=== PATIENT | female | born 1970 | race Caucasian/White ===

== ENCOUNTER → 2025-07-18 | Outpatient (CLI) | payer OTHER, SELFPAY ==
--- OUTSIDE RECORDS SUMMARY | 2025-07-18 06:51 | XMS RPT_ITS | CCD ---
Author Organization [facility] Care Team Providers Care Application Architect Manager Name Role Phone Zarrabi, Amberly Unavailable Unavailable No Doctor Assigned, Nodr Unavailable Unavail able Zarrabi, Amberly Unavailable Unavailable Zarrabi, Amberly Unavailable Unavailable No Doctor Assigned, Nodr Unavailable Unavail able Zarrabi, Amberly Unavailable Unavailable No Doctor Assigned, Nodr Unavailable Unavail able Zarrabi, Amberly Unavailable Unavailable No Doctor Assigned, Nodr Unavailable Unavail able Zarrabi, Amberly Unavailable Unavailable Zarrabi, Amberly Unavailable Unavailable Zarrabi, Amberly Unavailable Unavailable Zarrabi, Amberly Unavailable Unavailable Zarrabi, Amberly Unavailable Unavailable Zarrabi, Amberly Unavailable Unavailable Zarrabi, Amberly Unavailable Unavailable Tavallaee, Berhane M Unavailable Unavailable Zarrabi, Amberly Unavailable Unavailable Tavallaee, Berhane M Unavailable Unavailable Amberly Back MD Unavailable Unavailable Zarrabi, Amberly Unavailable Unavailable Amberly Back MD Primary Care Provider Amberly Back MD Unavailable Nayan Escobar MD Unavailable [phone] Amberly Back Referring Unavailable Dr. Amberly Back Attending Unavailable Dr. Amberly Back Primary Care Unavailable Amberly Back MD Unavailable Amberly Back MD Primary Care Provider AMBERLY BACK Primary Care Unavailable GERTRUDE GUERRA Referring Unavailable GERTRUDE GUERRA Admitting Unavailable AMBERLY BACK Primary Care Unavailable GERTRUDE GUERRA Attending Unavailable Amberly Back MD Primary Care Provider Amberly Back MD Unavailable ZARRABI, AMBERLY Primary Care Unavailable BRIAN DOWNING Attending Unavailable ZARRABI, AMBERLY Referring Unavailable ZARRABI, AMBERLY Primary Care Unavailable ZARRABI, AMBERLY Referring Unavailable ZARRABI, AMBERLY Primary Care Unavailable ZARRABI, AMBERLY Primary Care Unavailable PATRICK HIRSCH Attending Unavailable ZARRABI, AMBERLY Attending Unavailable ZARRABI, AMBERLY Primary Care Unavailable ZARRABI, AMBERLY Attending Unavailable ZARRABI, AMBERLY Primary Care Unavailable ZARRABI, AMBERLY Attending Unavailable ZARRABI, AMBERLY Primary Care Unavailable ZARRABI, AMBERLY Attending Unavailable ZARRABI, AMBERLY Primary Care Unavailable ZARRABI, AMBERLY Attending Unavailable ZARRABI, AMBERLY Primary Care Unavailable ZARRABI, AMBERLY Attending Unavailable ZARRABI, AMBERLY Primary Care Unavailable ZARRABI, AMBERLY Attending Unavailable ZARRABI, AMBERLY Primary Care Unavailable Carlos Holcomb Referring Unavailable Carlos Holcomb Attending Unavailable Allergies Allergy Classification Reported Allergen(s) Allergy Type Date of Onset Reaction(s) Facility (8 sources) ADHESIVE TAPE-SILICONES; Translations: [ADHESIVE TAPE-SILICONES] Propensity to adverse reactions to drug (disorder) 4 Rash [facility] (7 sources) gabapentin; Translations: [GABAPENTIN] Drug Allergy 5 Dizziness, Nausea/vomiting [facility] Work Phone: Medications Current Medications Medication Drug Class(es) Dates Sig (Normalized) Sig (Original) [id number] 200 actuat albuterol 0.09 mg/actuat metered dose inhaler (7 sources) beta2-Adrenergic Agonist Start: 08-14-2024 End: 08-14-2025 take 2 puff(s) by inhalation every six hours for wheezing albuterol 90 mcg/actuation inhaler Indications: Acute non-recurrent maxillary sinusitis Inhale 2 puffs every 6 hours if needed for wheezing. 18 g 08/14/2024 08/14/2025 Active Start: 08-14-2024 End: 08-14-2025 take 2 puff(s) by inhalation every six hours as needed albuterol 90 mcg/actuation inhaler Inhale 2 (two) puffs every 6 (six) hours as needed . 08/14/2024 08/14/2025 Active amoxicillin 875 mg / clavulanate 125 mg oral tablet (1 source) Penicillin-class Antibacterial Start: 08-14-2024 End: 08-21-2024 take 1 tablet by mouth twice daily amoxicillin-pot clavulanate (Augmentin) 875-125 mg tablet Indications: Acute non-recurrent maxillary sinusitis Take 1 tablet by mouth 2 times a day for 7 days. 14 tablet 08/14/2024 08/21/2024 Active apple cider vinegar 600 mg oral capsule (16 sources) take 1 capsule by mouth once daily apple cider vinegar 600 mg capsule Take 1 capsule by mouth once daily. Active Apple Cider Vine gar CAPS TAKE 1 CAPSULE Daily Refills: 0 DO Active ascorbic acid 500 mg oral tablet (16 sources) Vitamin C take 1 tablet by karen th once daily ascorbic acid (Vitamin C) 500 mg tablet Take 1 tablet (500 mg) by mouth once daily. Active Vitamin C TABS T UZAIR 1 TABLET DAILY. Refills: 0 DO Active azithromycin 250 mg oral tablet (1 source) Macrolide Antimicrobial Start: 12-04-2024 End: 12-09-2024 azithromycin (Zithromax) 250 mg tablet Indications: Acute non-recurrent maxillary sinusitis Take 2 tablets (500 mg) by mouth once daily for 1 day, THEN 1 tablet (250 mg) once daily for 4 days. Take 2 tabs (500 mg) by mouth today, than 1 daily for 4 days.. 6 tablet 12/04/2024 12/09/2024 Active BEE POLLEN ORAL (15 sources) take 1 tablet by mouth once daily BEE POLLEN ORAL Take 1 tablet by mouth daily . Active take 1 tablet by mouth once moses y BEE POLLEN ORAL Take 1 tablet by mouth once daily. Active take 1 tablet by mouth once moses y BEE POLLEN ORAL Take 1 tablet by mouth once daily. 0 Active betamethasone 0.5 mg/ml / clotrimazole 10 mg/ml topical cream (4 sources) Azole Antifungal, Corticosteroid Start: 05-27-2023 End: 09-24-2023 clotrimazole-betamethasone (Lotrisone) cream Indications: Skin candidiasis , Pruritus Apply 1 Application topically 2 times a day as needed (rash, pruritus). 45 g 3 05/27/2023 09/24/2023 Active busPIRone hydrochloride 5 mg oral tablet (17 sources) Start: 06-08-2024 take 1 tablet by mouth three times daily as needed for anxiety busPIRone (Buspar) 5 mg tablet Indications: Panic attacks TAKE 1 TABLET (5 MG) BY MOUTH 3 TIMES A DAY NEEDED (ANXIETY). 270 tablet 3 06/08/2024 Active Start: 02-17-2024 take 1 tablet by karen th three times daily as needed for anxiety busPIRone (Buspar) 5 mg tablet Indications: Panic attacks TAKE 1 TABLET (5 MG) BY MOUTH 3 TIMES A DAY NEEDED (ANXIETY). 270 tablet 02/17/2024 Active Start: 12-05-2019 End: 05-27-2023 take 1 tablet by mouth three times daily as needed for anxiety busPIRone (Buspar) 5 mg tablet Indications: Panic attacks Take 1 tablet (5 mg) by mouth 3 times a day as needed (anxiety). 90 tablet 3 05/27/2023 Active cephalexin 500 mg oral capsule (2 sources) Cephalosporin Antibacterial Start: 09-13-2024 End: 2024 take 1 capsule by mouth twice daily cephalexin (Keflex) 500 mg capsule Indications: Inflammation of foot joint Take 1 capsule (500 mg) by mouth 2 times a day for 7 days. 14 capsule 09/13/2024 2024 Active Start: 05-27-2023 End: 06-03-2023 take 1 capsule by mouth twice daily cephalexin (Keflex) 500 mg capsule Indications: Skin inflammation Take 1 capsule (500 mg) by mouth 2 times a day for 7 days. 14 capsule 0 05/27/2023 06/03/2023 Active cyclobenzaprine hydrochloride 10 mg oral tablet (16 sources) Muscle Relaxant Start: 09-13-2024 End: 09-27-2024 cyclobenzaprine (Flexeril) 10 mg tablet Indications: Tendinitis of foot Take 1 tablet (10 mg) by mouth as needed at bedtime for muscle spasms for up to 14 days. 14 tablet 09/13/2024 Active Start: 12-12-2020 End: 09-13-2024 take 1 tablet by mouth every twenty-four hours as needed cyclobenzaprine (Flexeril) 10 mg tablet Take 1 tablet (10 mg) by mouth once daily as needed for muscle spasms. 12/12/2020 09/13/2024 Discontinued (Med List Cleanup) DULoxetine 20 mg delayed release oral capsule (20 sources) Serotonin and Norepinephrine Reuptake Inhibitor Start: 05-09-2024 End: 05-25-2024 take 1 capsule by mouth twice daily DULoxetine (Cymbalta) [address] capsule Indications: Depression, major, in remission (CMS-HCC) , Anxiety Take 1 capsule (20 mg) by mouth 2 times a day. 180 capsule 3 05/25/2024 Active Start: 04-10-2024 End: 05-09-2024 take 1 capsule by mouth once daily DULoxetine (Cymbalta) [address] capsule Indications: Depression with anxiety Take 1 capsule (20 mg) by mouth once daily. 90 capsule 04/10/2024 05/09/2024 Discontinued (Reorder) Start: 12-12-2020 End: 05-27-2023 take 1 capsule by mouth once daily DULoxetine (Cymbalta) [address] capsule Indications: Depression with anxiety Take 1 capsule (20 mg) by mouth once daily. 90 capsule 3 05/27/2023 Active ECHINACEA ORAL (15 sources) take 1 tablet by karen th once daily ECHINACEA ORAL Take 1 tablet by mouth daily . Active take 1 tablet by mouth once moses y ECHINACEA ORAL Take 1 tablet by mouth once daily. Active take 1 tablet by mouth once moses y ECHINACEA ORAL Take 1 tablet by mouth once daily. 0 Active fenofibrate 54 mg oral tablet (1 source) Peroxisome Proliferator Receptor alpha Agonist Start: 05-25-2024 take 1 tablet by mouth once daily fenofibrate (Tricor) 54 mg tablet Indications: Hypertriglyceridemia Take 1 tablet (54 mg) by mouth once daily. 90 tablet 3 05/25/2024 Active Start: 05-25-2024 take 1 tablet by karen th once daily fenofibrate (Tricor) 54 mg tablet Indications: Hypertriglyceridemia Take 1 tablet (54 mg) by mouth once daily. 90 tablet 3 05/25/2024 Active fluconazole 150 mg oral tablet (1 source) Azole Antifungal Start: 05-27-2023 End: 05-30-2023 take 1 tablet by mouth once daily fluconazole (Diflucan) 150 mg tablet Indications: Skin candidiasis , Pruritus Take 1 tablet (150 mg) by mouth once daily for 3 days. 3 tablet 0 05/27/2023 05/30/2023 Active furosemide 20 mg oral tablet (3 sources) Loop Diuretic Start: 11-20-2024 End: 11-20-2025 take 1 tablet by mouth once daily as needed for edema furosemide (Lasix) 20 mg tablet Indications: Right foot pain , Edema of right foot Take 1 tablet (20 mg) by mouth once daily as needed (edema). 30 tablet 11/20/2024 11/20/2025 Active hydroCHLOROthiazide 12.5 mg / lisinopril 20 mg oral tablet (17 sources) Thiazide Diuretic, Angiotensin Converting Enzyme Inhibitor Start: 07-10-2024 take 1 tablet by mouth twice daily lisinopriL-hydroc hlorothiazide 20-12.5 mg tablet Indications: Hypertension associated with diabetes TAKE 1 TABLET BY MOUTH TWICE A DAY 180 tablet 3 07/10/2024 Active Start: 04-10-2024 take 1 tablet by karen twice daily lisinopriL-hydrochlorothiazide 20-12.5 m g tablet Indications: Hypertension associated with diabetes (Multi) Take 1 tablet by mouth 2 times a day. 180 tablet 04/10/2024 Active Start: 05-27-2023 End: 05-27-2023 take 1 tablet by mouth twice daily lisinopriL-hydrochlorothiazide 20-12.5 m g tablet Indications: Hypertension associated with diabetes (CMS/HCC) Take 1 tablet by mouth 2 times a day. 90 tablet 3 05/27/2023 Active hydrOXYzine hydrochloride 25 mg oral tablet (15 sources) Antihistamine Start: 05-27-2023 End: 10-13-2024 take 1 tablet by mouth three times daily as needed hydrOXYzine HCL (Atarax) 25 mg tablet Indications: Panic attacks , Pruritus Take 1 tablet (25 mg) by mouth 3 times a day as needed for itching. 40 tablet 1 09/13/2024 Active metFORMIN hydrochloride 500 mg oral tablet (18 sources) Biguanide Start: 11-20-2024 End: 11-20-2025 take 1 tablet by mouth once daily at breakfast metFORMIN (Glucophage) 500 mg tablet Indications: Type 2 diabetes mellitus with hyperglycemia, without long-term current use of insulin Take 1 tablet (500 mg) by mouth once daily with breakfast. 90 tablet 3 11/20/2024 11/20/2025 Active Start: 05-25-2024 End: 09-18-2025 take 1 tablet by mouth twice daily metFORMIN (Glucophage) 500 mg tablet Indications: Type 2 diabetes mellitus with hyperglycemia, without long-term current use of insulin Take 1 tablet (500 mg) by mouth 2 times daily (morning and late afternoon). 180 tablet 3 09/18/2024 11/20/2024 Discontinued (Reorder) Start: 06-17-2023 End: 06-16-2024 take 1 tablet by mouth once daily at mealtime metFORMIN (Glucophage) 500 mg tablet Indications: Type 2 diabetes mellitus with hyperglycemia, without long-term current use of insulin (Multi) TAKE 1 TABLET (500 MG) BY MOUTH ONCE DAILY WITH A MEAL. 90 tablet 3 05/22/2024 05/25/2024 Discontinued (Reorder) Start: 12-12-2020 End: 05-27-2023 take 1 tablet by mouth once daily metFORMIN (Glucophage) 500 mg tablet Take 1 tablet (500 mg) by mouth once daily. 0 12/12/2020 05/27/2023 Discontinued (Non-compliance) 24 hr metoprolol succinate 25 mg extended release oral tablet (11 sources) beta-Adrenergic Maycol Start: 05-09-2024 End: 08-21-2025 take 1 tablet by mouth once daily metoprolol succinate XL (Toprol-XL) 25 mg 24 hr tablet Indications: Hypertension associated with diabetes Take 1 tablet (25 mg) by mouth once daily. Do not crush or chew. 90 tablet 3 08/21/2024 08/21/2025 Active omeprazole 40 mg delayed release oral capsule (3 sources) Proton Pump Inhibitor Start: 11-20-2024 take 1 capsule by mouth once daily before mealtime omeprazole (PriLOSEC) [address] capsule Indications: Gastroesophageal reflux disease without esophagitis Take 1 capsule (40 mg) by mouth once daily in the morning. Take before meals. Do not crush or chew. 90 capsule 3 11/20/2024 Active ondansetron 4 mg disintegrating oral tablet (4 sources) Serotonin-3 Receptor Antagonist Start: 12-04-2024 take 1 tablet by mouth three times daily as needed for nausea ondansetron ODT (Zofran-ODT) 4 mg disintegrating tablet Indications: Nausea Dissolve 1 tablet (4 mg) in the mouth 3 times a day as needed for nausea or vomiting. 30 tablet 1 12/04/2024 Active Start: 12-02-2024 End: 12-04-2024 take 1 tablet by mouth every eight hours as needed for nausea and nausea ondansetron ODT (Zofran-ODT) 4 mg disintegrating tablet Indications: Nausea Dissolve 1 tablet (4 mg) in the mouth every 8 hours if needed for nausea or vomiting. 12 tablet 12/02/2024 12/04/2024 Discontinued (Reorder) Start: 11-20-2024 End: 11-27-2024 take 1 tablet by mouth every eight hours as needed for nausea and nausea ondansetron (Zofran) 4 mg tablet Indications: Nausea Take 1 tablet (4 mg) by mouth every 8 hours if needed for nausea or vomiting for up to 7 days. 20 tablet 11/20/2024 11/27/2024 Active predniSONE 2.5 mg oral tablet (4 sources) Start: 12-04-2024 End: 12-11-2024 take 1 tablet by mouth once daily predniSONE (Deltasone) 2.5 mg tablet Indications: Acute non-recurrent maxillary sinusitis Take 1 tablet (2.5 mg) by mouth once daily for 7 days. 7 tablet 12/04/2024 12/11/2024 Active Start: 11-20-2024 End: 11-25-2024 take 3 tablets by mouth once daily predniSONE (Deltasone) 10 mg tablet Indications: Right foot pain , Edema of right foot Take 3 tablets (30 mg) by mouth once daily for 5 days. 15 tablet 11/20/2024 11/25/2024 Active Start: 09-13-2024 End: 09-18-2024 take 3 tablets by mouth once daily predniSONE (Deltasone) 10 mg tablet Indications: Inflammation of foot joint , Tendinitis of foot Take 3 tablets (30 mg) by mouth once daily for 5 days. 15 tablet 09/13/2024 09/18/2024 Active Start: 06-17-2023 End: 06-22-2023 take 1 tablet by mouth once daily predniSONE (Deltasone) 5 mg tablet Indications: Acute pain of left knee Take 1 tablet (5 mg) by mouth once daily for 5 days. 5 tablet 0 06/17/2023 06/22/2023 Active simvastatin 5 mg oral tablet (10 sources) HMG-CoA Reductase Inhibitor Start: 05-25-2024 End: 08-21-2025 take 1 tablet by mouth once daily at bedtime simvastatin (Zocor) 5 mg tablet Indications: Hypercholesterolemia Take 1 tablet (5 mg) by mouth once daily at bedtime. 90 tablet 3 08/21/2024 08/21/2025 Active Turmeric extract (15 sources) Start: 06-27-2020 TURMERIC ORAL Take by mouth daily . 06/27/2020 Active Start: 06-27-2020 TURMERIC ORAL Take by mouth early in the morning.. 06/27/2020 Active Start: 06-27-2020 TURMERIC ORAL Take by mouth early in the morning.. 0 06/27/2020 Active Completed/Discontinued Medications Medication Drug Class(es) Dates Sig (Normalized) Sig (Original) Bee Pollen TABS (1 source) Bee Pollen TABS Take 1 tablet daily Refills: 0 DO Active ciprofloxacin 3 mg/ml ophthalmic solution (3 sources) Quinolone Antimicrobial Start: 06-17-2023 End: 07-01-2023 take 1 drop(s) into the eye(s) four times daily ciprofloxacin (Ciloxan) 0.3 % ophthalmic solution Indications: Acute conjunctivitis of both eyes, unspecified acute conjunctivitis type Administer 1 drop into both eyes 4 times a day for 7 days. 1.5 mL 0 06/17/2023 07/01/2023 Discontinued (Therapy completed) Echinacea TABS (1 source) Echinacea TABS T uzair 1 tablet daily Refills: 0 DO Active gemfibrozil 600 mg oral tablet (6 sources) Peroxisome Proliferator Receptor alpha Agonist Start: 05-25-2024 End: 09-13-2024 take 1 tablet by mouth twice daily gemfibrozil (Lopid) 600 mg tablet Take 1 tablet (600 mg) by mouth 2 times a day. 180 tablet 3 09/13/2024 09/13/2024 Discontinued (Drug interaction) Linseed Oil (1 source) Flax Seed Oil CA PS TAKE 1 CAPSULE Daily Refills: 0 DO Active Turmeric Curcumin Oral Capsule (1 source) Start: 06-27-2020 Turmeric Curcumin Oral Capsule Refills: 0 DO Start : 27-Jun-2020 Active Problems Active Problems Problem Classification Problem Date Documented Date Episodic/Chronic Adjustment disorders (3 sources) Grief finding; Translations: [Adjustment disorder with depressed mood] Onset: 05-09-2024 05-09-2024 Chronic Anxiety disorders (20 sources) Panic attack; Translations: [Panic disorder without agoraphobia] Onset: 05-27-2023 Resolved: 07-01-2023 05-27-2023 Chronic Conditions associated with dizziness or vertigo (3 sources) Vertigo; Translations: [Dizziness and giddiness] Onset: 12-02-2024 12-02-2024 Episodic Diabetes mellitus with complications (20 sources) Hypertensive disorder; Translations: [Diabetes with other specified manifestations, type II or unspecified type, not stated as uncontrolled] Onset: 05-27-2023 05-27-2023 Chronic Disorders of lipid metabolism (20 sources) Hypertriglyceridemia; Translations: [Pure hyperglyceridemia] Onset: 06-17-2023 06-17-2023 Chronic Esophageal disorders (3 sources) Gastroesophageal reflux disease without esophagitis; Translations: [Gastro-esophageal reflux disease without esophagitis] Onset: 11-20-2024 11-20-2024 Chronic Hypertension with complications and secondary hypertension (2 sources) Hypertension secondary to endocrine disorders; Translations: [Hypertension secondary to endocrine disorders] Onset: 05-27-2023 Chronic Malaise and fatigue (8 sources) Fatigue; Translations: [Chronic fatigue, unspecified] Onset: 07-20-2024 07-20-2024 Chronic Miscellaneous mental health disorders (15 sources) Primary insomnia; Translations: [Persistent disorder of initiating or maintaining sleep] Onset: 05-27-2023 05-27-2023 Chronic Mood disorders (20 sources) Major depression in remission; Translations: [Major depressive disorder, single episode, in full remission] Onset: 05-27-2023 05-27-2023 Chronic Nausea and vomiting (7 sources) Nausea; Translations: [Nausea] Onset: 11-20-2024 11-20-2024 Episodic Osteoarthritis (3 sources) Foot joint inflamed; Translations: [Primary osteoarthritis, unspecified ankle and foot] Onset: 09-13-2024 09-13-2024 Chronic Other connective tissue disease (4 sources) Pain in right foot; Translations: [Pain in right foot] Onset: 08-28-2024 Episodic Other connective tissue disease (2 sources) Foot pain Onset: 08-28-2024 Episodic Other connective tissue disease (1 source) Tendinitis of foot; Translations: [Other enthesopathy of unspecified foot and ankle] 09-13-2024 Episodic Other connective tissue disease (4 sources) Pain in right foot; Translations: [Pain in right foot] 09-28-2024 Episodic Other connective tissue disease (2 sources) Other enthesopathy of unspecified foot and ankle; Translations: [Other enthesopathy of unspecified foot and ankle] Onset: 09-13-2024 Episodic Other connective tissue disease (1 source) Pain in right lower leg; Translations: [Pain in right lower leg] Onset: 06-01-2025 Episodic Other inflammatory condition of skin (18 sources) Pruritus, unspecified; Translations: [Unspecified pruritic disorder] Onset: 05-27-2023 Resolved: 05-09-2024 05-27-2023 Episodic Other injuries and conditions due to external causes (2 sources) History of fall; Translations: [History of falling] 06-17-2023 Episodic Other nervous system disorders (1 source) Other hereditary and idiopathic neuropathies; Translations: [Other hereditary and idiopathic neuropathies] Onset: 06-01-2025 Chronic Other non-traumatic joint disorders (1 source) Knee pain; Translations: [Pain in joint, lower leg] Episodic Other nutritional; endocrine; and metabolic disorders (11 sources) Obesity caused by energy imbalance; Translations: [Class 1 obesity due to excess calories with serious comorbidity and body mass index (BMI) of 31.0 to 31.9 in adult] Onset: 05-09-2024 05-09-2024 Chronic Other nutritional; endocrine; and metabolic disorders (4 sources) Other obesity due to excess calories; Translations: [Other obesity due to excess calories] Onset: 05-09-2024 Chronic Other nutritional; endocrine; and metabolic disorders (4 sources) Body mass index (BMI) 31.0-31.9, adult; Translations: [Body mass index (BMI) 31.0-31.9, adult] Onset: 05-09-2024 Chronic Other upper respiratory infections (6 sources) Acute maxillary sinusitis; Translations: [Acute maxillary sinusitis, unspecified] Onset: 08-14-2024 08-14-2024 Episodic Residual codes; unclassified (8 sources) Obstructive sleep apnea syndrome; Translations: [Obstructive sleep apnea (adult) (pediatric)] Onset: 07-20-2024 07-20-2024 Chronic Residual codes; unclassified (1 source) Past history of procedure; Translations: [Other specified personal history presenting hazards to health] Episodic Residual codes; unclassified (1 source) Influenza vaccination declined; Translations: [Vaccination not carried out because of patient refusal] Episodic Residual codes; unclassified (1 source) Edema of foot; Translations: [Localized edema] 11-20-2024 Episodic Residual codes; unclassified (2 sources) Localized edema; Translations: [Localized edema] Onset: 11-20-2024 Episodic Spondylosis; intervertebral disc disorders; other back problems (15 sources) Degeneration of thoracic intervertebral disc; Translations: [Degeneration of thoracic or thoracolumbar intervertebral disc] Onset: 05-27-2023 05-27-2023 Chronic Spondylosis; intervertebral disc disorders; other back problems (16 sources) Chronic low back pain; Translations: [Lumbago] Onset: 05-27-2023 05-27-2023 Episodic Unclassified (1 source) Obesity, class 1; Translations: [Obesity, class 1] Onset: 05-09-2024 Viral infection (3 sources) Acute viral disease; Translations: [Viral infection, unspecified] Onset: 12-02-2024 12-02-2024 Episodic Past or Other Problems Problem Classification Problem Date Documented Date Episodic/Chronic Inflammation; infection of eye (except that caused by tuberculosis or sexually transmitteddisease) (14 sources) Acute conjunctivitis of bilateral eyes; Translations: [Unspecified acute conjunctivitis, bilateral] Onset: 06-17-2023 Resolved: 07-01-2023 06-17-2023 Episodic Malaise and fatigue (5 sources) Fatigue; Translations: [Other fatigue] Onset: 05-09-2024 05-09-2024 Episodic Mycoses (15 sources) Candidiasis of skin; Translations: [Candidiasis of skin and nail] Onset: 05-27-2023 Resolved: 05-09-2024 05-27-2023 Episodic Other connective tissue disease (14 sources) Muscle weakness of limb; Translations: [Muscle weakness (generalized)] Onset: 05-27-2023 05-27-2023 Episodic Other lower respiratory disease (11 sources) Apnea; Translations: [Apnea, not elsewhere classified] Onset: 05-09-2024 05-09-2024 Episodic Other lower respiratory disease (1 source) Snoring; Translations: [Snoring] 05-09-2024 Episodic Other lower respiratory disease (4 sources) Apnea, not elsewhere classified; Translations: [Apnea, not elsewhere classified] Onset: 05-09-2024 Episodic Other nervous system disorders (15 sources) Numbness; Translations: [Anesthesia of skin] Onset: 05-27-2023 05-27-2023 Episodic Other non-traumatic joint disorders (17 sources) Pain in left knee; Translations: [Pain in joint, lower leg] Onset: 05-27-2023 05-27-2023 Episodic Other screening for suspected conditions (not mental disorders or infectious disease) (20 sources) Liver function tests abnormal; Translations: [Other abnormal blood chemistry] Onset: 05-27-2023 05-27-2023 Episodic Residual codes; unclassified (15 sources) Edema of lower extremity; Translations: [Edema] Onset: 05-27-2023 05-27-2023 Episodic Skin and subcutaneous tissue infections (15 sources) Inflammatory dermatosis; Translations: [Local infection of the skin and subcutaneous tissue, unspecified] Onset: 05-27-2023 Resolved: 05-09-2024 05-27-2023 Episodic Unclassified (14 sources) Onset: 05-27-2023 Resolved: 12-04-2024 05-27-2023 Unclassified (1 source) Obesity, class 1; Translations: [Obesity, class 1] Onset: 07-10-2024 NEGATED: Highlighted row has not occurred!Residual codes; unclassified (5 sources) Disease Episodic Results Test Name Value Interpretation Reference Range Facility POCT SARS-COV-2/FLU/RSV PCR SYMPTOMATIC manually resultedOrdered By: Bri Yoder on 12-02-2024 FLUAV RNA ROMY+probe Ql (Resp) Not detected Not Detected [facility] FLUBV RNA ROMY+probe Ql (Resp) Not detected Not Detected [facility] Interpretation and review of laboratory results Normal [facility] RSV RNA ROMY+probe Ql (Resp) Not detected Not Detected [facility] SARS-CoV-2 (COVID-19) RNA ROMY+probe Ql (Resp) Not detected Not Detected [facility] XR FOOT RIGHT 3+ VIEWS (DANIELLE RADHA)on 08-28-2024 XR FOOT RIGHT 3+ VIEWS (STANDARD) No acute fractures or dislocations noted. Joint spaces are within normal limits. Large plantar calcaneal enthesophyte noted. Dictated by: GERTRUDE GUERRA on WedAug 29, 2024 11:57:36 AM EST Transcribed by: GERTRUDE GUERRA on WedAug 29, 2024 11:57:36 AM EST Finalized by: GERTRUDE GUERRA on WedAug 29, 2024 11:57:36 AM EST Normal [facility] Ambulatory Comment on above: Order Comment: Injur y/Trauma or Illness?:Illness/Other How long have you had these symptoms (acute/chronic)?:Chronic Reason for exam?:pain History of cancer?:u Surgeries, chemotherapy, or radiation?:u Type of Exam?:Initial Additional signs and symptoms?:no BI MAMMO BILATERAL SCREENING TOMOSYNTHESISon 05-25-2024 BI MAMMO BILATERAL SCREENING TOMOSYNTHESIS Interpreted By: Ann Brown, STUDY: BI MAMMO BILATERAL SCREENING TOMOSYNTHESIS; 05/25/2024 11:53 am ACCESSION NUMBER(S): [id number] ORDERING CLINICIAN: AMBERLY BACK INDICATION: Screening. COMPARISON: Digital mammograms dated 06/01/2023 FINDINGS: CC and MLO 2D digital mammograms and digital breast tomosynthesis images were obtained of the bilateral breasts. 3-D volume images were reconstructed in 5 views at an independent workstation as 1 mm slices through the breasts in both the CC and MLO projections. Density: There are scattered areas of fibroglandular density. No discrete mass or focal asymmetry is identified. No suspicious microcalcifications or foci of architectural distortion are seen. There has been no significant change. This study was interpreted with CAD. IMPRESSION: No mammographic evidence of malignancy. Based on the Tyrer-Cuzick model for breast cancer risk assessment, the patient's lifetime risk of breast cancer is 27.8%. Patients with over a 20% lifetime risk of developing breast cancer may benefit from additional screening with breast MRI or ultrasound. Please note that this estimate is based on responses provided on the patient questionnaire. For more information regarding high risk consultation, please call [phone]. BI-RADS CATEGORY: BI-RADS Category: 1 Negative. Recommendation: Routine Screening Mammogram in 1 Year. Recommended Date: 1 Year. Laterality: Bilateral. MACRO: None Signed by: Ann Brown 05/26/2024 9:23 AM Dictation workstation: [id number] [facility] XR Knee - left 3 Viewson 1. Unremarkable left knee radiographs. MACRO: None. Signed by: Lyn Houser 06/19/2023 8:24 AM Dictation workstation: [id number] MMODAL Interpreted By: Lyn Houser, STUDY: Left knee, 3 views. INDICATION: Signs/Symptoms:pain , s/p fall. COMPARISON: 12/23/2020. ACCESSION NUMBER(S): [id number] ORDERING CLINICIAN: AMBERLY BACK FINDINGS: No acute fracture or malalignment. Sclerotic foci again noted in the superior patella likely representing bone islands, stable when compared with prior. Joint spaces are well maintained. No significant knee joint effusion. Soft tissues are unremarkable. MMODAL Lyn Houser MD - 06/19/2023 Interpreted By: Lyn Houser, STUDY: Left knee, 3 views. INDICATION: Signs/Symptoms:pain , s/p fall. COMPARISON: 12/23/2020. ACCESSION NUMBER(S): [id number] ORDERING CLINICIAN: AMBERLY BACK FINDINGS: No acute fracture or malalignment. Sclerotic foci again noted in the superior patella likely representing bone islands, stable when compared with prior. Joint spaces are well maintained. No significant knee joint effusion. Soft tissues are unremarkable. IMPRESSION: 1. Unremarkable left knee radiographs. MACRO: None. Signed by: Lyn Houser 06/19/2023 8:24 AM Dictation workstation: [id number] [facility] Work Phone: XR Knee - left 3 ViewsOrdere d By: Lyn Houser on 06-19-2023 [facility] Work Phone: XR Knee - left 3 Viewson Radiology Study observation (narrative) [facility] Work Phone: DIGITAL MAMM SCREENING W/ TO [place] 06-01-2023 DIGITAL MAMM SCREENING W/ JOSE ROBERTO Patient Name: LUCY LORENZ STUDY: DIGITAL MAMM SCREENING W/ JOSE ROBERTO; 06/01/2023 10:54 am ACCESSION NUMBER(S): [id number] ORDERING CLINICIAN: AMBERLY BACK INDICATION: Screening. COMPARISON: Digital mammograms dated 12/23/2020 FINDINGS: CC and MLO 2D digital mammograms and digital breast tomosynthesis images were obtained of the bilateral breasts. 3-D volume images were reconstructed in 4 views at an independent workstation as 1 mm slices through the breasts in both the CC and MLO projections. There are areas of scattered fibroglandular tissue. No discrete mass or focal asymmetry is identified. No suspicious microcalcifications or foci of architectural distortion are seen. There has been no significant change. This study was interpreted with CAD. IMPRESSION: No mammographic evidence of malignancy. BI-RADS CATEGORY: BI-RADS Category: 1 Negative. Recommendation: Routine Screening Mammogram in 1 Year. Recommended Date: 1 Year. Laterality: Bilateral. MACRO: None Electronically signed by: ANN BROWN MD [facility] Office Visit (Internal Medic ine)on 01-02-2021 Follow-up visit Diagnoses/Problems Assessed Muscle weakness of lower extremity (728.87) (M62.81) Chronic low back pain (724.2,338.29) (M54.5,G89.29) Knee pain, left (719.46) (M25.562) Type 2 diabetes mellitus with hyperglycemia (250.00) (E11.65) Abnormal LFTs (790.6) (R94.5) Hypertension associated with diabetes (250.80,401.9) (E11.59,I15.2) Orders Abnormal LFTs, Hypertension associated with diabetes, Type 2 diabetes mellitus with hyperglycemia Comprehensive Metabolic Panel; Status:Active - Retrospective Authorization; Requested for:[id number]; Perform:Lab Services - Lab To Draw (Blood Test); Due:[id number]; Last Updated By:Jesse Guillen; 01/02/2021 1:18:21 PM;Ordered; For:Abnormal LFTs, Hypertension associated with diabetes, Type 2 diabetes mellitus with hyperglycemia; Ordered By:Amberly Back; Chronic low back pain, Knee pain, left, Muscle weakness of lower extremity Physical Therapy - General Referral Evaluation and Treatment Evaluate AND Treat Status: Temporary Deferral - Pt requests deferral,pt to check with ins and will contact office back Ordered;For: Chronic low back pain, Knee pain, left, Muscle weakness of lower extremity; Ordered By: Amberly Back Performed: Order Comments: PT HAS PUT THIS ON HOLD SO THAT SHE CAN CHECK WITH HER INS Due: [id number]; Last Updated By: Brian Avila; 01/02/2021 1:16:47 PM Knee pain, left Renew: Cyclobenzaprine HCl - 10 MG Oral Tablet; TAKE 1 TABLET Daily prn Rx By: Amberly Back; Dispense: 7 Days ; #:7 Tablet; Refill: 0;For: Knee pain, left; BEREKET = N; Sent To: [facility] #[id number] Type 2 diabetes mellitus with hyperglycemia Hemoglobin A1C; Status:Active - Retrospective Authorization; Requested for:[id number]; Perform:Lab Services - Lab To Draw (Blood Test); Due:[id number]; Last Updated By:Jesse Guillen; 01/02/2021 1:18:21 PM;Ordered; For:Type 2 diabetes mellitus with hyperglycemia; Ordered By:Amberly Back; Patient Discussion/Summary 3 MON CMP, HGBA1C Provider Impressions TEST RESULTS WERE DISCUSSED. ADVISED TO APPLY WARM COMPRESSION AND TO USE OTC PAIN CREAM PRN. ADVISED FOR L LEG ELEVATION PRN. ADVISED TO FOLLOW THE LOW FAT, LOW CALORIE DIET AND TO EAT SMALLER PORTIONS MORE FREQUENT SERVINGS. ADVISED FOR WEIGHT LOSS. ADVISED FOR REGULAR DAILY EXERCISE . Chief Complaint 2 WEEK FOLLOW UP + LEFT KNEE XRAY + MAMMOGRAM. PT STATE PAIN IN THE LEFT KNEE COMES AND GOES. History of Present IllnessMAMMO AND XR F/U. STILL HAS THE L KNEE PAIN ON AND OFF 4-02/13 ON AND OFF .NO H/O FALL OR TRAUMA. Review of Systems Constitutional: not feeling poorly, no fever, no recent weight gain and no recent weight loss. Eyes: no blurred vision and no diplopia. ENT: no hearing loss, no tinnitus, no earache, no sore throat, no hoarseness and no swollen glands in the neck. Cardiovascular: no chest pain, no tightness or heavy pressure, no shortness of breath, no palpitations and no lower extremity edema. Respiratory: no cough, not coughing up sputum and no wheezing that is consistent with asthma. Gastrointestinal: no change in bowel habits, no diarrhea, no constipation, no bloody stools, no nausea, no vomiting, no abdominal pain, no signs and symptoms of ulcer disease, no marli colored stools and no intolerance to fatty foods. Genitourinary: no urinary frequency, no dysuria, no burning sensation during urination and no hematuria. Musculoskeletal: no arthralgias, no joint stiffness, no muscle weakness, no back pain, no difficulty walking and as noted in HPI. Skin: no rashes, no change in skin color and pigmentation, no skin lesions and no skin lumps. Neurological: no headaches, no dizziness, no seizures, no tingling, no numbness, no signs and symptoms of stroke and no limb weakness. Psychiatric: no confusion, no memory lapses or loss, no depression and no sleep disturbances. Endocrine: no goiter, no thyroid disorder, no diabetes mellitus, no excessive thirst, no dry skin, no cold intolerance, no heat intolerance and no increased urinary frequency. Hematologic/Lymphatic: is not slow to heal, does not bleed easily, does not bruise easily, no thrombophlebitis, no anemia and no history of blood transfusion. All other systems have been reviewed and are negative for complaint. Active Problems Problems Abnormal LFTs (790.6) (R94.5) Chronic low back pain (724.2,338.29) (M54.5,G89.29) Degeneration of intervertebral disc of thoracic region (722.51) (M51.34) Depression with anxiety (300.4) (F41.8) Hypertension associated with diabetes (250.80,401.9) (E11.59,I15.2) Knee pain, left (719.46) (M25.562) Leg edema (782.3) (R60.0) Panic attacks (300.01) (F41.0) Primary insomnia (307.42) (F51.01) Type 2 diabetes mellitus with hyperglycemia (250.00) (E11.65) Past Medical History Problems History of Encounter for cervical Pap smear with pelvic exam (V76.2,V72.31) (Z01.419) NORMAL PER PT FAMILY PLANNING H/O mammogram (V15.89) (Z92.89) CAT 2 H/O mammogram (V15.89) (Z92.89) Category: (more content not included)... Normal [facility] - Screening Mammogram w / Tomosynthesison 12-23-2020 MG Breast Screening Interpreted by: ANN BROWN 12/23/20 11:32 Patient Name: LUCY LORENZ STUDY: Digital mammography screening with jose roberto; 12/23/2020 10:56 am ACCESSION NUMBER(S): [id number] ORDERING CLINICIAN: AMBERLY BACK INDICATION: Screening. COMPARISON: Comparison is made to prior digital mammograms dated 11/13/2019 FINDINGS: CC and MLO 2D digital mammograms and digital breast tomosynthesis images were obtained of the bilateral breasts. 3-D volume images were reconstructed in 4 views at an independent workstation as 1 mm slices through the breasts in both the CC and MLO projections. There are areas of scattered fibroglandular tissue. No discrete mass or focal asymmetry is identified. No suspicious microcalcifications or foci of architectural distortion are seen. There has been no significant change. This study was interpreted with CAD. IMPRESSION: No mammographic evidence of malignancy. BI-RADS CATEGORY: Category: 1 - Negative. Recommendation: 1 Year Screening. Electronically signed by: ANN BROWN 12/23/20 11:32 Normal [facility] Work Phone: Radiologyon 12-23-2020 XR Knee 3 Views Please click on the link to view the study images Normal [facility] Work Phone: Office Visit (Internal Medic ine)on 12-12-2020 Follow-up visit Diagnoses/Problems Assessed Hypertension associated with diabetes (250.80,401.9) (E11.59,I15.2) Type 2 diabetes mellitus with hyperglycemia (250.00) (E11.65) Depression with anxiety (300.4) (F41.8) Knee pain, left (719.46) (M25.562) Breast cancer screening (V76.10) (Z12.39) Orders Depression with anxiety Start: DULoxetine HCl - 20 MG Oral Capsule Delayed Release Particles (Cymbalta); TAKE 1 CAPSULE BY MOUTH DAILY Rx By: Amberly Back; Dispense: 90 Days ; #:90 Capsule; Refill: 3;For: Depression with anxiety; BEREKET = N; Verified Transmission to [facility] #[id number]; Last Updated By: Rexly; 12/12/2020 11:14:07 AM Knee pain, left Start: Cyclobenzaprine HCl - 10 MG Oral Tablet; TAKE 1 TABLET Daily prn Rx By: Amberly Back; Dispense: 7 Days ; #:7 Tablet; Refill: 0;For: Knee pain, left; BEREKET = N; Verified Transmission to [facility] #6167; Last Updated By: Rexly; 12/12/2020 11:14:01 AM Type 2 diabetes mellitus with hyperglycemia Start: metFORMIN HCl - 500 MG Oral Tablet; Take 1 tablet daily Rx By: Amberly Back; Dispense: 90 Days ; #:90 Tablet; Refill: 3;For: Type 2 diabetes mellitus with hyperglycemia; BEREKET = N; Verified Transmission to [facility] #6167; Last Updated By: Rexly; 12/12/2020 11:13:02 AM Patient Discussion/Summary 2 WEEKS. XR OF L KNEE (COMPLETE VIEWS) SCREENING MAMMO Provider Impressions TEST RESULTS WERE DISCUSSED. RECOMMENDED TO CHECK BS BID AND TO BRING THE LOG FOR NEXT VISIT, AND TO EAT SMALL MEALS , MORE FREQUENT SERVINGS. ADVISED TO FOLLOW THE LOW FAT, LOW CALORIE DIET AND TO EAT SMALLER PORTIONS MORE FREQUENT SERVINGS. ADVISED TO APPLY WARM COMPRESSION AND TO USE OTC PAIN CREAM PRN. ADVISED FOR RELAXATION TECHNIQUES. ADVISED TO CUT DOWN ON CAFFEINE. OFFERED REFERRAL FOR COUNSELING ,PT REFUSED. ADVISED FOR FALL PRECAUTION, ADVISED TO MONITOR THE WEIGHT. LOSS. Chief Complaint 4 MO F/U LABS-[facility] DONE ON 11/25/20; C/O SERTRALINE IS NOT HELPING WITH HER DEPRESSION-WANTING TO DISCUSS CHANGING MED TO CYMBALTA. C/O L KNEE PAIN-NO KNOWN INJURY History of Present IllnessLAB F/U. DEPRESSION,/ ANXIETY. PRN BUSPIRONE HELPS BUT ZOLOFT DOESN'T HELP AND WANTS TO CHANGE TO CYMBALTA (HAD NO SIDE EFFECT). L KNEE PAIN X SEVERAL WEEKS (4-6 /10 ON AND OFF). NO TRAUMA ,BUT HAD FRACTURE OF L LOWER LEG SEVERAL YEARS AGO. Review of Systems Constitutional: not feeling poorly, no fever, no recent weight gain and no recent weight loss. Eyes: no blurred vision and no diplopia. ENT: no hearing loss, no tinnitus, no earache, no sore throat, no hoarseness and no swollen glands in the neck. Cardiovascular: no chest pain, no tightness or heavy pressure, no shortness of breath, no palpitations and no lower extremity edema. Respiratory: no cough, not coughing up sputum and no wheezing that is consistent with asthma. Gastrointestinal: no change in bowel habits, no diarrhea, no constipation, no bloody stools, no nausea, no vomiting, no abdominal pain, no signs and symptoms of ulcer disease, no marli colored stools and no intolerance to fatty foods. Genitourinary: no urinary frequency, no dysuria, no burning sensation during urination and no hematuria. Musculoskeletal: no arthralgias, no joint stiffness, no muscle weakness, no back pain, no difficulty walking and as noted in HPI. Skin: no rashes, no change in skin color and pigmentation, no skin lesions and no skin lumps. Neurological: no headaches, no dizziness, no seizures, no tingling, no numbness, no signs and symptoms of stroke and no limb weakness. Psychiatric: no confusion, no memory lapses or loss, no depression, no sleep disturbances and as noted in HPI. Endocrine: no goiter, no thyroid disorder, no diabetes mellitus, no excessive thirst, no dry skin, no cold intolerance, no heat intolerance and no increased urinary frequency. Hematologic/Lymphatic: is not slow to heal, does not bleed easily, does not bruise easily, no thrombophlebitis, no anemia and no history of blood transfusion. All other systems have been reviewed and are negative for complaint. 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 History of Tonsillectomy with adenoidectomy A CHILD Family History Mother (more content not included)... [facility] Hemoglobin A1C, Levelon 03-2 HbA1c (Bld) [Mass fraction] 7.5 % 0 [facility] Work Phone: Office Visit (Internal Medic ine)on 07-11-2020 Follow-up visit Diagnoses/Problems Assessed Type 2 diabetes mellitus with hyperglycemia (250.00) (E11.65) Hypertension associated with diabetes (250.80,401.9) (E11.59,I10) Abnormal LFTs (790.6) (R94.5) Patient Discussion/Summary 4 MON. CMP, HGBA1C Provider Impressions ADVISED TO FOLLOW THE LOW FAT, LOW CALORIE DIET AND TO EAT SMALLER PORTIONS MORE FREQUENT SERVINGS. ADVISED FOR REGULAR DAILY EXERCISE . ADVISED TO CUT DOWN ON CAFFEINE. ADVISED FOR WEIGHT LOSS. Chief Complaint An interactive audio and video telecommunication system which permits real time communications between the patient (at the originating site) and provider (at the distant site) was utilized to provide this telehealth service. VIRTUAL VISIT [phone]; 2 WK F/U-PT HAS BS READINGS; NO COMPLAINTS TODAY History of Present IllnessVIRTUAL VISIT DUE TO COVID19 . F/U ON HTN. BP WHIC IS IMPROVING . PT CHECKED THE BP DURING VIRTUAL VISIT AND WAS 120/80 WITH HR OF 75. DM2 IS IMPROVING , ZOLOFT HELPS WITH DEPRESSION/ ANXIETY. HAS NO COMPLAINTS. Review of Systems Constitutional: not feeling poorly, no fever, no recent weight gain and no recent weight loss. Eyes: no blurred vision and no diplopia. ENT: no hearing loss, no tinnitus, no earache, no sore throat, no hoarseness and no swollen glands in the neck. Cardiovascular: no chest pain, no tightness or heavy pressure, no shortness of breath, no palpitations and no lower extremity edema. Respiratory: no cough, not coughing up sputum and no wheezing that is consistent with asthma. Gastrointestinal: no change in bowel habits, no diarrhea, no constipation, no bloody stools, no nausea, no vomiting, no abdominal pain, no signs and symptoms of ulcer disease, no marli colored stools and no intolerance to fatty foods. Genitourinary: no urinary frequency, no dysuria, no burning sensation during urination and no hematuria. Musculoskeletal: no arthralgias, no joint stiffness, no muscle weakness, no back pain and no difficulty walking. Skin: no rashes, no change in skin color and pigmentation, no skin lesions and no skin lumps. Neurological: no headaches, no dizziness, no seizures, no tingling, no numbness, no signs and symptoms of stroke and no limb weakness. Psychiatric: no confusion, no memory lapses or loss, no depression, no sleep disturbances and as noted in HPI. Endocrine: no goiter, no thyroid disorder, no diabetes mellitus, no excessive thirst, no dry skin, no cold intolerance, no heat intolerance, no increased urinary frequency and as noted in HPI. Hematologic/Lymphatic: is not slow to heal, does not bleed easily, does not bruise easily, no thrombophlebitis, no anemia and no history of blood transfusion. All other systems have been reviewed and are negative for complaint. Active Problems Problems Abnormal LFTs (790.6) (R94.5) Chronic low back pain (724.2,338.29) (M54.5,G89.29) Degeneration of intervertebral disc of thoracic region (722.51) (M51.34) Depression with anxiety (300.4) (F41.8) Hypertension associated with diabetes (250.80,401.9) (E11.59,I10) Leg edema (782.3) (R60.0) Panic attacks (300.01) (F41.0) Primary insomnia (307.42) (F51.01) Type 2 diabetes mellitus with hyperglycemia (250.00) (E11.65) Past Medical History Problems History of Encounter for cervical Pap smear with pelvic exam (V76.2,V72.31) (Z01.419) NORMAL PER PT FAMILY PLANNING H/O mammogram (V15.89) (Z92.89) CAT 2 History of Influenza vaccination declined (V64.06) (Z28.21) Surgical History Problems History of Removal 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 History of Tonsillectomy with adenoidectomy A CHILD Family History Mother Family history of hypertension (V17.49) (Z82.49) Family history of malignant neoplasm of female breast (V16.3) (Z80.3) Family history of type 2 diabetes mellitus (V18.0) (Z83.3) Father Family history of hypertension (V17.49) (Z82.49) Family history of type 2 diabetes mellitus (V18.0) (Z83.3) Maternal Grandmother Family history of malignant neoplasm of female breast (V16.3) (Z80.3) Maternal Great Grandmother Family history of malignant neoplasm of female breast (V16.3) (Z80.3) Social History Problems Denies alcohol consumption (V49.89) (Z78.9) Does not have living will Does not use illicit drugs (V49.89) (Z78.9) Never smoked tobacco (V49.89) (Z78.9) Allergies Medication No Known Drug Allergies Recorded By: Brian Avila; 12/05/2019 9:30:48 AM Current Meds Medication NameInstruction Apple Cider Vinegar CAPSTAKE 1 CAPSULE Daily Bee Pollen TABSTake 1 tablet daily busPIRone HCl - 5 MG Oral TabletTAKE 1 TABLET 3 times daily PRN anxiety Echinacea TABSTake 1 tablet daily Flax Seed Oil CAPSTAKE 1 CAPSULE Daily Lisinopril-hydroCHLOROt hiazide 20-12.5 MG Oral TabletTAKE 1 TABLET TWICE DAILY. Sertraline HCl - 50 MG Oral TabletTAKE 1 TABLET DAILY. Turmeric Curcumin Oral Capsule Vitamin C TABSTAKE 1 TABLET DAILY. Vitals Vital Signs Recorded: 11Jul2020 0 (more content not included)... Normal [facility] Office Visit (Internal Medic ine)on 06-27-2020 Follow-up visit Diagnoses/Problems Assessed Depression with anxiety (300.4) (F41.8) Hypertension associated with diabetes (250.80,401.9) (E11.59,I10) Abnormal LFTs (790.6) (R94.5) Type 2 diabetes mellitus with hyperglycemia (250.00) (E11.65) Orders Depression with anxiety Renew: Sertraline HCl - 50 MG Oral Tablet; TAKE 1 TABLET DAILY Rx By: Amberly Back; Dispense: 30 Days ; #:30 Tablet; Refill: 11;For: Depression with anxiety; BEREKET = N; Verified Transmission to [facility] #[id number]; Last Updated By: Rexly; 06/27/2020 9:52:46 AM Hypertension associated with diabetes Renew: Lisinopril-hydroCHLOROt hiazide 20-12.5 MG Oral Tablet; TAKE 1 TABLET TWICE DAILY Rx By: Amberly Back; Dispense: 30 Days ; #:60 Tablet; Refill: 11;For: Hypertension associated with diabetes; BEREKET = N; Verified Transmission to [facility] #6167; Last Updated By: Rexly; 06/27/2020 9:53:43 AM Patient Discussion/Summary 2 WEEKS Provider Impressions TEST RESULTS WERE DISCUSSED. ADVISED FOR RELAXATION TECHNIQUES. OFFERED REFERRAL FOR COUNSELING ,PT REFUSED. OFFERED REFERRAL TO RISK SPECIALIST ,PT REFUSED. ADVISED TO FOLLOW THE LOW FAT, LOW CALORIE DIET AND TO EAT SMALLER PORTIONS MORE FREQUENT SERVINGS. RECOMMENDED TO CHECK BS DAILY AND TO BRING THE LOG FOR NEXT VISIT, AND TO EAT SMALL MEALS , MORE FREQUENT SERVINGS. ADVISED FOR WEIGHT LOSS. ADVISED TO MONITOR THE BP AND TO HAVE LOW SALT DIET, Chief Complaint 6 MONTH F/U LABS. DECLINES FLU VACCINE History of Present IllnessLAB F/U ( [facility]) . WORSENING DEPRESSION/ ANXIETY X SEVERAL MONTHS. DOESN'T FOLLOW THE DIABETIC DIET. Active Problems Problems Chronic low back pain (724.2,338.29) (M54.5,G89.29) Degeneration of intervertebral disc of thoracic region (722.51) (M51.34) Depression with anxiety (300.4) (F41.8) Hypertension associated with diabetes (250.80,401.9) (E11.59,I10) Leg edema (782.3) (R60.0) Panic attacks (300.01) (F41.0) Primary insomnia (307.42) (F51.01) Past Medical History Problems History of Encounter for cervical Pap smear with pelvic exam (V76.2,V72.31) (Z01.419) NORMAL PER PT FAMILY PLANNING H/O mammogram (V15.89) (Z92.89) CAT 2 History of Influenza vaccination declined (V64.06) (Z28.21) Surgical History Problems History of Removal 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 History of Tonsillectomy with adenoidectomy A CHILD Family History Mother Family history of hypertension (V17.49) (Z82.49) Family history of malignant neoplasm of female breast (V16.3) (Z80.3) Family history of type 2 diabetes mellitus (V18.0) (Z83.3) Father Family history of hypertension (V17.49) (Z82.49) Family history of type 2 diabetes mellitus (V18.0) (Z83.3) Maternal Grandmother Family history of malignant neoplasm of female breast (V16.3) (Z80.3) Maternal Great Grandmother Family history of malignant neoplasm of female breast (V16.3) (Z80.3) Social History Problems Denies alcohol consumption (V49.89) (Z78.9) Does not have living will Does not use illicit drugs (V49.89) (Z78.9) Never smoked tobacco (V49.89) (Z78.9) Allergies Medication No Known Drug Allergies Recorded By: Brian Avila; 12/05/2019 9:30:48 AM Current Meds Medication NameInstruction Apple Cider Vinegar CAPSTAKE 1 CAPSULE Daily Bee Pollen TABSTake 1 tablet daily busPIRone HCl - 5 MG Oral TabletTAKE 1 TABLET 3 times daily PRN anxiety Echinacea TABSTake 1 tablet daily Flax Seed Oil CAPSTAKE 1 CAPSULE Daily Lisinopril-hydroCHLOROt hiazide 10-12.5 MG Oral TabletTAKE 1 TABLET DAILY. Sertraline HCl - 25 MG Oral TabletTake 1 tablet daily Turmeric Curcumin Oral Capsule Vitamin C TABSTAKE 1 TABLET DAILY. Vitals Vital Signs Recorded: 27Jun2020 09:07AM Heart Rate80 Pnyldvbx424, LUE, Sitting Qsgbhigww97, LUE, Sitting Height5 ft 10 in Iibvlh423 lb BMI Pqlfotudvv80.86 BSA Calculated2.24 Tobacco Useb) No Fall Screeningb) One or more falls in the last year Signatures Electronically signed by : Amberly Back MD; Jun 27 2020 7:11PM EST (Author) Normal Touchworks Vital Signs Date Time Vital Sign Value Performing Clinician Facility 12-04-2024 08:23-0400 Body height 177.8 cm Amberly Back MD Work Phone: [facility] 12-04-2024 08:23-0400 Body mass index (BMI) [Ratio] 29.96 kg/m2 Amberly Back MD Work Phone: [facility] 12-04-2024 08:23-0400 Body weight 94.71 kg Amberly Back MD Work Phone: [facility] 12-04-2024 08:23-0400 Diastolic blood pressure 80 mm[Hg] Amberly Back MD Work Phone: [facility] 12-04-2024 08:23-0400 Heart rate 77 /min Amberly Back MD Work Phone: [facility] 12-04-2024 08:23-0400 SaO2% (BldA) [Mass fraction] 95 % Amberly Back MD Work Phone: [facility] 12-04-2024 08:23-0400 Systolic blood pressure 112 mm[Hg] Amberly Back MD Work Phone: [facility] 12-02-2024 13:17-0400 Body height 177.8 cm Brian Downing APRN-ENVIRONMENTAL COMPLIANCE INSPECTOR Work Phone: [facility] 12-02-2024 13:17-0400 Body mass index (BMI) [Ratio] 29.99 kg/m2 Brian Chang PROCESS CONTROL TECHNICIAN-ENVIRONMENTAL COMPLIANCE INSPECTOR Work Phone: [facility] 12-02-2024 13:17-0400 Body temperature 96.69 [degF] Brian Chang PROCESS CONTROL TECHNICIAN-ENVIRONMENTAL COMPLIANCE INSPECTOR Work Phone: [facility] 12-02-2024 13:17-0400 Body weight 94.8 kg Brian Chagn PROCESS CONTROL TECHNICIAN-ENVIRONMENTAL COMPLIANCE INSPECTOR Work Phone: [facility] 12-02-2024 13:17-0400 Diastolic blood pressure 77 mm[Hg] Brian Chang PROCESS CONTROL TECHNICIAN-ENVIRONMENTAL COMPLIANCE INSPECTOR Work Phone: [facility] 12-02-2024 13:17-0400 Heart rate 81 /min Brian Chang PROCESS CONTROL TECHNICIAN-ENVIRONMENTAL COMPLIANCE INSPECTOR Work Phone: [facility] 12-02-2024 13:17-0400 Respiratory rate 16 /min Brian Chang PROCESS CONTROL TECHNICIAN-ENVIRONMENTAL COMPLIANCE INSPECTOR Work Phone: [facility] 12-02-2024 13:17-0400 SaO2% (BldA) [Mass fraction] 99 % Brian Chang PROCESS CONTROL TECHNICIAN-ENVIRONMENTAL COMPLIANCE INSPECTOR Work Phone: 6(733)830-892585 [place] [address] 12-02-2024 13:17-0400 Systolic blood pressure 116 mm[Hg] Brian Calderonta PROCESS CONTROL TECHNICIAN-ENVIRONMENTAL COMPLIANCE INSPECTOR Work Phone: [facility] 11-20-2024 08:15-0400 Body height 177.8 cm Amberly Back MD Work Phone: [facility] 11-20-2024 08:15-0400 Body mass index (BMI) [Ratio] 30.06 kg/m2 Amberly Back MD Work Phone: [facility] 11-20-2024 08:15-0400 Body weight 95.03 kg Amberly Back MD Work Phone: [facility] 11-20-2024 08:15-0400 Diastolic blood pressure 83 mm[Hg] Amberly Back MD Work Phone: 0(955)281-274515 [place] [address] 11-20-2024 08:15-0400 Heart rate 78 /min Amberly Back MD Work Phone: 7(685)797-858077 [place] [address] 11-20-2024 08:15-0400 SaO2% (BldA) [Mass fraction] 97 % Amberly Back MD Work Phone: 3(482)725-037355 [place] [address] 11-20-2024 08:15-0400 Systolic blood pressure 118 mm[Hg] Amberly Back MD Work Phone: 4(070)795-897855 [place] [address] 09-28-2024 08:37-0500 Body height 177.8 cm Amberly Back MD Work Phone: 2(599)480-149555 [place] [address] 09-28-2024 08:37-0500 Body mass index (BMI) [Ratio] 30.32 kg/m2 Amberly Back MD Work Phone: 8(080)573-740155 [place] [address] 09-28-2024 08:37-0500 Body weight 95.84 kg Amberly Back MD Work Phone: 5(838)747-148355 [place] [address] 09-28-2024 08:37-0500 Diastolic blood pressure 72 mm[Hg] Amberly Back MD Work Phone: 8(022)786-916355 [place] [address] 09-28-2024 08:37-0500 Heart rate 83 /min Amberly Back MD Work Phone: 3(067)158-420955 [place] [address] 09-28-2024 08:37-0500 SaO2% (BldA) [Mass fraction] 98 % Amberly Back MD Work Phone: 1(448)858-702155 [place] [address] 09-28-2024 08:37-0500 Systolic blood pressure 103 mm[Hg] Amberly Back MD Work Phone: 7(856)606-251055 [place] [address] 09-13-2024 08:10-0500 Body height 177.8 cm Amberly Back MD Work Phone: 3(534)617-542955 [place] [address] 09-13-2024 08:10-0500 Body mass index (BMI) [Ratio] 30.55 kg/m2 Amberly Back MD Work Phone: [facility] 09-13-2024 08:10-0500 Body weight 96.57 kg Amberly Back MD Work Phone: [facility] 09-13-2024 08:10-0500 Diastolic blood pressure 80 mm[Hg] Amberly Back MD Work Phone: [facility] 09-13-2024 08:10-0500 Heart rate 101 /min Amberly Back MD Work Phone: [facility] 09-13-2024 08:10-0500 SaO2% (BldA) [Mass fraction] 97 % Amberly Back MD Work Phone: [facility] 09-13-2024 08:10-0500 Systolic blood pressure 113 mm[Hg] Amberly Back MD Work Phone: [facility] 08-14-2024 13:38-0500 Body height 177.8 cm Patrick Hirsch PROCESS CONTROL TECHNICIAN-ENVIRONMENTAL COMPLIANCE INSPECTOR Work Phone: 8(339)833-247727 [address] 08-14-2024 13:38-0500 Body mass index (BMI) [Ratio] 30.56 kg/m2 Patrick Hirsch PROCESS CONTROL TECHNICIAN-ENVIRONMENTAL COMPLIANCE INSPECTOR Work Phone: 2(266)908-098727 [address] 08-14-2024 13:38-0500 Body temperature 98.01 [degF] Ptarick Hirsch PROCESS CONTROL TECHNICIAN-ENVIRONMENTAL COMPLIANCE INSPECTOR Work Phone: [facility] 08-14-2024 13:38-0500 Body weight 96.62 kg Patrick Hirsch PROCESS CONTROL TECHNICIAN-ENVIRONMENTAL COMPLIANCE INSPECTOR Work Phone: [facility] 08-14-2024 13:38-0500 Diastolic blood pressure 80 mm[Hg] Patrick Hirsch PROCESS CONTROL TECHNICIAN-ENVIRONMENTAL COMPLIANCE INSPECTOR Work Phone: 4(648)312-392727 [address] 08-14-2024 13:38-0500 Heart rate 95 /min Patrick Hirsch PROCESS CONTROL TECHNICIAN-ENVIRONMENTAL COMPLIANCE INSPECTOR Work Phone: [facility] 08-14-2024 13:38-0500 Respiratory rate 16 /min Patrick Hirsch PROCESS CONTROL TECHNICIAN-ENVIRONMENTAL COMPLIANCE INSPECTOR Work Phone: [facility] 08-14-2024 13:38-0500 SaO2% (BldA) [Mass fraction] 95 % Patrick Carloselisabeth PROCESS CONTROL TECHNICIAN-ENVIRONMENTAL COMPLIANCE INSPECTOR Work Phone: [facility] 08-14-2024 13:38-0500 Systolic blood pressure 120 mm[Hg] Patrick Hirsch PROCESS CONTROL TECHNICIAN-ENVIRONMENTAL COMPLIANCE INSPECTOR Work Phone: [facility] 07-20-2024 09:56-0500 Body height 177.8 cm Amberly Back MD Work Phone: [facility] 07-20-2024 09:56-0500 Body mass index (BMI) [Ratio] 30.59 kg/m2 Amberly Back MD Work Phone: [facility] 07-20-2024 09:56-0500 Body weight 96.71 kg Amberly Back MD Work Phone: [facility] 07-20-2024 09:56-0500 Diastolic blood pressure 78 mm[Hg] Amberly Back MD Work Phone: [facility] 07-20-2024 09:56-0500 Heart rate 84 /min Amberly Back MD Work Phone: [facility] 07-20-2024 09:56-0500 Systolic blood pressure 112 mm[Hg] Amberly Back MD Work Phone: [facility] 05-25-2024 08:02-0400 Body height 177.8 cm Amberly Back MD Work Phone: [facility] 05-25-2024 08:02-0400 Body mass index (BMI) [Ratio] 31.64 kg/m2 Amberly Back MD Work Phone: [facility] 05-25-2024 08:02-0400 Body weight 100.02 kg Amberly Back MD Work Phone: [facility] 05-25-2024 08:02-0400 Diastolic blood pressure 86 mm[Hg] Amberly Back MD Work Phone: 7(891)445-432477 [place] [address] 05-25-2024 08:02-0400 Heart rate 79 /min Amberly Back MD Work Phone: 8(307)673-338471 [address] 05-25-2024 08:02-0400 Systolic blood pressure 129 mm[Hg] Amberly Back MD Work Phone: 0(026)245-165271 [address] 05-09-2024 08:07-0400 Body height 177.8 cm Amberly Back MD Work Phone: 8(501)673-390171 [address] 05-09-2024 08:07-0400 Body mass index (BMI) [Ratio] 31.57 kg/m2 Amberly Back MD Work Phone: 5(491)519-178877 [place] [address] 05-09-2024 08:07-0400 Body weight 99.79 kg Amberly Back MD Work Phone: 6(771)720-305371 [address] 05-09-2024 08:07-0400 Diastolic blood pressure 94 mm[Hg] Amberly Back MD Work Phone: 1(786)540-123271 [address] 05-09-2024 08:07-0400 Heart rate 106 /min Amberly Back MD Work Phone: 0(852)198-227771 [address] 05-09-2024 08:07-0400 Systolic blood pressure 152 mm[Hg] Amberly Back MD Work Phone: 7(707)731-870577 [place] [address] 07-01-2023 10:27-0400 Body height 180.3 cm Amberly Back MD Work Phone: 6(789)370-275977 [place] [address] 07-01-2023 10:27-0400 Body mass index (BMI) [Ratio] 31.66 kg/m2 Amberly Back MD Work Phone: 2(408)729-328177 [place] [address] 07-01-2023 10:27-0400 Body weight 102.97 kg Amberly Back MD Work Phone: 8(322)515-416977 [place] [address] 07-01-2023 10:27-0400 Diastolic blood pressure 80 mm[Hg] Amberly Back MD Work Phone: 1(549)273-349355 [place] [address] 07-01-2023 10:27-0400 Heart rate 100 /min Amberly Back MD Work Phone: 3(695)685-070555 [place] [address] 07-01-2023 10:27-0400 Systolic blood pressure 130 mm[Hg] Amberly Back MD Work Phone: 9(554)652-496255 [place] [address] 06-17-2023 10:01-0400 Body height 180.3 cm Amberly Back MD Work Phone: 3(512)602-133455 [place] [address] 06-17-2023 10:01-0400 Body mass index (BMI) [Ratio] 31.38 kg/m2 Amberly Back MD Work Phone: 5(350)058-218855 [place] [address] 06-17-2023 10:01-0400 Body weight 102.06 kg Amberly Back MD Work Phone: 0(190)330-264155 [place] [address] 06-17-2023 10:01-0400 Diastolic blood pressure 80 mm[Hg] Amberly Back MD Work Phone: 5(599)971-218355 [place] [address] 06-17-2023 10:01-0400 Heart rate 76 /min Amberly Back MD Work Phone: 4(365)018-520155 [place] [address] 06-17-2023 10:01-0400 Systolic blood pressure 120 mm[Hg] Amberly Back MD Work Phone: 9(899)979-629855 [place] [address] 05-27-2023 13:25-0400 Body height 180.3 cm Amberly Back MD Work Phone: 4(080)169-935055 [place] [address] 05-27-2023 13:25-0400 Body mass index (BMI) [Ratio] 32.22 kg/m2 Amberly Back MD Work Phone: [facility] 05-27-2023 13:25-0400 Body weight 104.78 kg Amberly Back MD Work Phone: [facility] 05-27-2023 13:25-0400 Diastolic blood pressure 80 mm[Hg] Amberly Back MD Work Phone: [facility] 05-27-2023 13:25-0400 Heart rate 84 /min Amberly Back MD Work Phone: [facility] 05-27-2023 13:25-0400 SaO2% (BldA) [Mass fraction] 96 % Amberly Back MD Work Phone: [facility] 05-27-2023 13:25-0400 Systolic blood pressure 130 mm[Hg] Amberly Back MD Work Phone: [facility] 12-12-2020 12:18-0400 Body height 177.8 cm Amberly Back MD [facility] Work Phone: 12-12-2020 12:18-0400 Body mass index (BMI) [Ratio] 34.02 kg/m2 Amberly Back MD [facility] Work Phone: 12-12-2020 12:18-0400 Body surface area Derived from formula 2.24 m2 Amberly Back MD [facility] Work Phone: 12-12-2020 12:18-0400 Body weight 107.53 kg Amberly Back MD [facility] Work Phone: 12-12-2020 12:18-0400 Diastolic blood pressure 80 mm[Hg] Amberly Back MD [facility] Work Phone: 12-12-2020 12:18-0400 Heart rate 76 /min Amberly Back MD [facility] Work Phone: 12-12-2020 12:18-0400 Systolic blood pressure 118 mm[Hg] Amberly Back MD -[facility] Work Phone: Encounters Encounter Date Encounter Type Care Provider Facility Start: 06-01-2025 ambulatory Carlos Zhang Marianela ty:[facility] Start: 12-04-2024 End: 12-04-2024 Office outpatient visit 25 minutes Amberly Back MD Work Phone: [facility] Comment on above: Acute non-recurrent maxillary sinusitis (Primary Dx); Nausea; Hypertension associated with diabetes (Multi); Hypercholesterolemia; Type 2 diabetes mellitus with hyperglycemia, without long-term current use of insulin; Right foot pain Start: 12-04-2024 End: 12-04-2024 [facility] Start: 12-02-2024 End: 12-02-2024 Patient encounter procedure Brian Downing APRN-ENVIRONMENTAL COMPLIANCE INSPECTOR Work Phone: [facility] Comment on above: Acute viral syndrome (Primary Dx); Nausea; Vertigo Start: 12-02-2024 End: 12-02-[address] [facility] Start: 11-20-2024 End: 11-20-2024 Office outpatient visit 25 minutes Amberly Back MD Work Phone: [facility] Comment on above: Right foot pain (Sara carlitos Dx); Type 2 diabetes mellitus with hyperglycemia, without long-term current use of insulin; Nausea; Gastroesophageal reflux disease without esophagitis; Edema of right foot Start: 11-20-2024 End: 11-20-2024 [facility] Start: 09-28-2024 End: 09-28-2024 [facility] Start: 09-28-2024 End: 09-28-2024 Office outpatient visit 25 minutes Amberly Back MD Work Phone: [facility] Comment on above: Type 2 diabetes evens itus with hyperglycemia, without long-term current use of insulin (Primary Dx); Hypertension associated with diabetes (Multi); Right foot pain Start: 09-13-2024 End: 09-13-2024 Office outpatient visit 25 minutes Amberly Back MD Work Phone: [facility] Comment on above: Inflammation of foot joint (Primary Dx); Panic attacks; Pruritus; Tendinitis of foot; Hypertension associated with diabetes (Multi) Start: 09-13-2024 End: 09-13-2024 ambulatory [facility] Start: 08-28-2024 End: 08-28-2024 Chart abstracting Gertrude Guerra DPM Work Phone: [facility] Start: 08-28-2024 End: 09-01-2024 [facility] Start: 08-14-2024 End: 08-14-2024 Patient encounter procedure Patrick Hirsch PROCESS CONTROL TECHNICIAN-ENVIRONMENTAL COMPLIANCE INSPECTOR Work Phone: [facility] Comment on above: Acute non-recurrent maxillary sinusitis (Primary Dx) Start: 08-14-2024 End: 08-14-2024 ambulatory [facility] Start: 07-20-2024 End: 07-20-2024 Office outpatient visit 25 minutes Amberly Back MD Work Phone: [facility] Comment on above: Obstructive sleep ap mat syndrome, mild (Primary Dx); Type 2 diabetes mellitus with hyperglycemia, without long-term current use of insulin; Abnormal LFTs; Hypertriglyceridemia; Hypercholesterolemia; Hypertension associated with diabetes (Multi); Chronic fatigue Start: 07-20-2024 End: 07-20-2024 ambulatory [facility] Start: 07-10-2024 End: 07-10-2024 ambulatory [facility] Start: 05-25-2024 End: 05-25-2024 Subsequent hospital visit by physician Spencer [facility] Comment on above: Encounter for screen ing mammogram for malignant neoplasm of breast Start: 05-25-2024 End: 05-25-[address] [facility] Start: 05-25-2024 End: 05-25-2024 Office outpatient visit 25 minutes Amberly Back MD Work Phone: [facility] Comment on above: Type 2 diabetes evens itus with hyperglycemia, without long-term current use of insulin (Multi) (Primary Dx); Depression, major, in remission (CMS-HCC); Anxiety; Hypercholesterolemia; Hypertriglyceridemia; Encounter for screening mammogram for malignant neoplasm of breast; Hypertension associated with diabetes (Multi); Abnormal LFTs Start: 05-25-2024 End: 05-25-2024 ambulatory [facility] Start: 05-09-2024 End: 05-09-2024 Office outpatient visit 25 minutes Amberly Back MD Work Phone: [facility] Comment on above: Witnessed apneic spe lls (Primary Dx); Depression, major, in remission (CMS-HCC); Fatigue, unspecified type; Class 1 obesity due to excess calories with serious comorbidity and body mass index (BMI) of 31.0 to 31.9 in adult; Hypertension associated with diabetes (Multi); Type 2 diabetes mellitus with hyperglycemia, without long-term current use of insulin (Multi); Hypertriglyceridemia; Anxiety; Grief; Panic attacks; Snoring Start: 05-09-2024 End: 05-09-2024 ambulatory [facility] Start: 07-01-2023 End: 07-01-2023 Office outpatient visit 25 minutes Amberly Back MD Work Phone: [facility] Comment on above: Hypertension associa korina with diabetes (CMS/HCC) (Primary Dx); Type 2 diabetes mellitus with hyperglycemia, without long-term current use of insulin (CMS/HCC); Hypertriglyceridemia; Screen for colon cancer; Acute pain of left knee Start: 06-18-2023 End: 06-18-2023 Subsequent hospital visit by physician Spencer [facility] Comment on above: Acute pain of left k nee; H/O fall Start: 06-17-2023 End: 06-17-2023 Office outpatient visit 25 minutes Amberly Back MD Work Phone: [facility] Comment on above: Type 2 diabetes evens itus with hyperglycemia, without long-term current use of insulin ([facility]/HCC) (Primary Dx); Acute pain of left knee; H/O fall; Hypertension associated with diabetes (CMS/HCC); Acute conjunctivitis of both eyes, unspecified acute conjunctivitis type; Hypertriglyceridemia Start: 06-01-[address] Amberly Back Fac ility:[id number] Start: 05-27-2023 End: 05-27-2023 Office outpatient visit 25 minutes Amberly Back MD Work Phone: [facility] Comment on above: Screening for hyperl ipidemia (Primary Dx); Panic attacks; Hypertension associated with diabetes (CMS/HCC); Type 2 diabetes mellitus with hyperglycemia, unspecified whether correction insulin use (CMS/HCC); Depression with anxiety; Encounter for screening mammogram for malignant neoplasm of breast; Skin candidiasis; Pruritus; Skin inflammation; Depression, major, in remission ([facility]); Anxiety; Numbness Start: 12-12-2020 Patient encounter procedure Amberly Back MD [facility] Work Phone: Start: 07-11-2020 Patient encounter procedure Amberly Back MD [facility] Work Phone: Start: 06-27-2020 Patient encounter procedure Amberly Back MD [facility] Work Phone: Start: 12-26-2019 Patient encounter procedure Amberly Back MD [facility] Work Phone: Start: 12-05-2019 Patient encounter procedure Amberly Back MD [facility] Work Phone: Start: 10-24-2018 Patient encounter procedure Facility:[id number] Start: 09-05-2018 End: 09-06-2018 Patient encounter procedure Berhane Cohen Facility:[facility] Start: 08-18-2018 Patient encounter procedure Amberly Back Facility:[facility] Start: 04-29-2018 End: 04-29-2018 Patient encounter procedure Amberly Back Facility:[facility] Start: 01-27-2018 End: 01-28-2018 Patient encounter procedure Amberly Wong Facility:[facility] Start: 12-28-2017 End: 12-29-2017 Patient encounter procedure Amberly Back Facility:[facility] Start: 12-28-2017 End: 12-28-2017 Patient encounter procedure Amberly Back Facility:[facility] Start: 10-28-2017 End: 10-29-2017 Patient encounter procedure Amberly Back Facility:[facility] Start: 09-27-2017 End: 09-28-2017 Patient encounter procedure Amberly Davidrocaeldane Facility:[facility] Manual pelvic examination Amberly Back MD -[facility] Work Phone: Procedures Date Procedure Procedure Detail Performing Clinician Start: 12-02-2024 POCT SARS-COV-2/FLU/ RSV PCR SYMPTOMATIC Brian Calderonta PROCESS CONTROL TECHNICIAN-ENVIRONMENTAL COMPLIANCE INSPECTOR Work Phone: Start: 11-14-2024 Lipid 1996 panel - S estrellita or Plasma Amberly Back MD Work Phone: Start: 09-28-2024 Follow-up visit Follow-up AMBERLY BACK Start: 05-25-2024 Mammography Amberly decker MD Work Phone: Start: 05-23-2024 Lipid 1996 panel - S estrellita or Plasma Patrick Hirsch PROCESS CONTROL TECHNICIAN-ENVIRONMENTAL COMPLIANCE INSPECTOR Work Phone: Start: 06-18-2023 Radiologic examinati on knee 3 views Amberly Back MD Work Phone: Start: 06-01-2023 Mammography Amberly decker MD Work Phone: Start: 12-23-2020 Mammography Amberly decker MD Work Phone: Excision Amberly Back MD Tonsillectomy and adenoidectomy Amberly Back MD Plan of Treatment Date Care Activity Detail Author Start: 11-14-2025 Lipid panel Lipid Panel [facility] Start: 05-25-2025 Screening for malignant neoplasm of breast Mammogram [facility] Start: 05-23-2025 Lipid panel Lipid Panel [facility] Start: 03-19-2025 End: 03-19-2025 Patient encounter procedure 03/19/2025 8:00 AM EDT Office Visit [facility] [address] [place] [id number] Amberly Back MD [address] [place] [address] [facility] Start: 02-14-2025 Hemoglobin A1c measurement Diabetes: Hemoglobin A1C [facility] Start: 12-04-2024 End: 12-04-2025 Comprehensive metabolic 2000 panel - Serum or Plasma Comprehensive Metabolic Panel Lab Routine Hypertension associated with diabetes (Multi) Type 2 diabetes mellitus with hyperglycemia, without long-term current use of insulin Expected: 12/04/2024 (Approximate), Expires: 12/04/2025 [facility] Service Area Work Phone: Comment on above: Expected: 12/04/2024 (Approximate), Expi res: 12/04/2025 Start: 12-04-2024 End: 12-04-2025 Hemoglobin A1c/Hemoglobin.total in Blood Hemoglobin A1C Lab Routine Type 2 diabetes mellitus with hyperglycemia, without long-term current use of insulin Expected: 12/04/2024 (Approximate), Expires: 12/04/2025 [facility] Work Phone: Comment on above: Expected: 12/04/2024 (Approximate), Expi res: 12/04/2025 Start: 12-04-2024 End: 12-04-2025 Lipid 1996 panel - Serum or Plasma Lipid Panel Lab Routine Hypercholesterolemia Expected: 12/04/2024 (Approximate), Expires: 12/04/2025 [facility] Work Phone: Comment on above: Expected: 12/04/2024 (Approximate), Expi res: 12/04/2025 Start: 12-04-2024 End: 12-04-2024 Patient encounter procedure 12/04/2024 8:30 AM EDT Office Visit [facility] [address] [place] [phone] Amberly Back MD [address] [place] [address] [facility] Start: 11-20-2024 End: 11-20-2024 Patient encounter procedure 11/20/2024 8:15 AM EDT Office Visit [facility] [address] [facility] [place] [phone] Amberly Back MD [address] [place] [address] [facility] Start: 09-28-2024 End: 09-28-2024 Patient encounter procedure 09/28/2024 8:30 AM EST Office Visit [facility] [address] [place] [phone] Amberly Back MD [address] [place] [address] [facility] Start: 09-18-2024 End: 09-18-2024 Patient encounter procedure 09/18/2024 10:00 AM EST Office Visit [facility] [address] [place] [phone] Gertrude Guerra, JED [address] [place] [address] [facility] Start: 08-22-2024 Hemoglobin A1c measurement Diabetes: Hemoglobin A1C [facility] Start: 07-20-2024 End: 07-20-2025 Comprehensive metabolic 2000 panel - Serum or Plasma Comprehensive Metabolic Panel Lab Routine Type 2 diabetes mellitus with hyperglycemia, without long-term current use of insulin Abnormal LFTs Hypertension associated with diabetes (Multi) Expected: 07/20/2024 (Approximate), Expires: 07/20/2025 [facility] Service Area Work Phone: Comment on above: Expected: 07/20/2024 (Approximate), Expi res: 07/20/2025 Start: 07-20-2024 End: 07-20-2025 Hemoglobin A1c/Hemoglobin.total in Blood Hemoglobin A1C Lab Routine Type 2 diabetes mellitus with hyperglycemia, without long-term current use of insulin Expected: 07/20/2024 (Approximate), Expires: 07/20/2025 [facility] Work Phone: Comment on above: Expected: 07/20/2024 (Approximate), Expi res: 07/20/2025 Start: 07-20-2024 End: 07-20-2025 Lipid 1996 panel - Serum or Plasma Lipid Panel Lab Routine Hypertriglyceridemia Hypercholesterolemia Expected: 07/20/2024 (Approximate), Expires: 07/20/2025 [facility] Work Phone: Comment on above: Expected: 07/20/2024 (Approximate), Expi res: 07/20/2025 Start: 07-20-2024 End: 07-20-2025 Microalbumin/Creatinine [Mass Ratio] in Urine Albumin-Creatinine Ratio, Urine Random Lab Routine Type 2 diabetes mellitus with hyperglycemia, without long-term current use of insulin Expected: 07/20/2024 (Approximate), Expires: 07/20/2025 [facility] Work Phone: Comment on above: Expected: 07/20/2024 (Approximate), Expi res: 07/20/2025 Start: 07-11-2024 End: 07-11-2024 Patient encounter procedure 07/11/2024 8:00 AM EST Office Visit [facility] [address] [place] [phone] Amberly Back MD [address] [place] [address] [facility] Start: 07-03-2024 End: 07-03-2024 Clinical Support 07/03/2024 8:00 PM EDT Clinical Support [address] [phone] [facility] Start: 06-01-2024 Screening for malignant neoplasm of breast Mammogram [facility] Start: 05-25-2024 End: 07-25-2025 DBT Breast - bilateral [facility] Service Area Work Phone: Comment on above: Expected: 05/25/2024, Expires: Once for 1 Occurrenc es starting 05/25/2024 until 05/25/2024 Start: 05-25-2024 End: 05-25-2024 Patient encounter procedure 05/25/2024 8:00 AM EDT Office Visit [facility] [address] [place] [phone] Amberly Back MD [address] [place] [address] [facility] Start: 05-09-2024 End: 05-09-2025 CBC W Auto Differential panel - Blood CBC and Auto Differential Lab Routine Fatigue, unspecified type Expected: 05/09/2024 (Approximate), Expires: 05/09/2025 [facility] Work Phone: Comment on above: Expected: 05/09/2024 (Approximate), Expi res: 05/09/2025 Start: 05-09-2024 End: 05-09-2025 Comprehensive metabolic 2000 panel - Serum or Plasma Comprehensive Metabolic Panel Lab Routine Fatigue, unspecified type Hypertension associated with diabetes (Multi) Type 2 diabetes mellitus with hyperglycemia, without long-term current use of insulin (Multi) Expected: 05/09/2024 (Approximate), Expires: 05/09/2025 [facility] Work Phone: Comment on above: Expected: 05/09/2024 (Approximate), Expi res: 05/09/2025 Start: 05-09-2024 End: 05-09-2025 Hemoglobin A1c/Hemoglobin.total in Blood Hemoglobin A1C Lab Routine Type 2 diabetes mellitus with hyperglycemia, without long-term current use of insulin (Multi) Expected: 05/09/2024 (Approximate), Expires: 05/09/2025 [facility] Work Phone: Comment on above: Expected: 05/09/2024 (Approximate), Expi res: 05/09/2025 Start: 05-09-2024 End: 05-09-2025 In-Center Sleep Study In-Center Sleep Study Sleep Center Routine Witnessed apneic spells Depression, major, in remission ([facility]) Fatigue, unspecified type Class 1 obesity due to excess calories with serious comorbidity and body mass index (BMI) of 31.0 to 31.9 in adult Expected: 05/09/2024, Expires: 05/09/2025 [facility] Service Area Work Phone: Comment on above: Expected: 05/09/2024, Expires: Start: 05-09-2024 End: 05-09-2025 Lipid 1996 panel - Serum or Plasma Lipid Panel Lab Routine Hypertriglyceridemia Expected: 05/09/2024 (Approximate), Expires: 05/09/2025 [facility] Work Phone: Comment on above: Expected: 05/09/2024 (Approximate), Expi res: 05/09/2025 Start: 05-09-2024 End: 05-09-2025 Magnesium [Mass/volume] in Serum or Plasma Magnesium Lab Routine Fatigue, unspecified type Expected: 05/09/2024 (Approximate), Expires: 05/09/2025 [facility] Work Phone: Comment on above: Expected: 05/09/2024 (Approximate), Expi res: 05/09/2025 Start: 05-09-2024 End: 05-09-2025 Microalbumin/Creatinine [Mass Ratio] in Urine Albumin-Creatinine Ratio, Urine Random Lab Routine Type 2 diabetes mellitus with hyperglycemia, without long-term current use of insulin (Multi) Expected: 05/09/2024 (Approximate), Expires: 05/09/2025 [facility] Work Phone: Comment on above: Expected: 05/09/2024 (Approximate), Expi res: 05/09/2025 Start: 05-09-2024 End: 05-09-2025 TSH with reflex to Free T4 if abnormal TSH with reflex to Free T4 if abnormal Lab Routine Fatigue, unspecified type Expected: 05/09/2024 (Approximate), Expires: 05/09/2025 [facility] Work Phone: Comment on above: Expected: 05/09/2024 (Approximate), Expi res: 05/09/2025 Start: 05-09-2024 End: 05-09-2025 Zinc [Mass/volume] in Serum or Plasma Zinc Lab Routine Fatigue, unspecified type Expected: 05/09/2024 (Approximate), Expires: 05/09/2025 [facility] Work Phone: Comment on above: Expected: 05/09/2024 (Approximate), Expi res: 05/09/2025 Start: 05-07-2024 COVID-19 Vaccine ( season) COVID-19 Vaccine () [facility] Start: 05-07-2024 COVID-19 Vaccine ( season) COVID-19 Vaccine ( season) [facility] Start: 05-07-2024 Influenza vaccination Influenza Vaccine (#1) [facility] Start: 11-01-2023 End: 11-01-2023 Patient encounter procedure 11/01/2023 10:30 AM EST Office Visit [facility] [address] [place] [phone] Amberly Back MD [address] [place] [address] [facility] Start: 09-03-2023 Hemoglobin A1c measurement Diabetes: Hemoglobin A1C [facility] Start: 07-01-2023 End: 07-01-2024 Cologuard colon cancer screening Cologuard colon cancer screening Lab Routine Screen for colon cancer Expected: 07/01/2023 (Approximate), Expires: 07/01/2024 [facility] Work Phone: Comment on above: Expected: 07/01/2023 (Approximate), Expi res: 07/01/2024 Start: 07-01-2023 End: 07-01-2024 Comprehensive metabolic 2000 panel - Serum or Plasma Comprehensive Metabolic Panel Lab Routine Hypertension associated with diabetes (CMS/HCC) Type 2 diabetes mellitus with hyperglycemia, without long-term current use of insulin (CMS/HCC) Expected: 07/01/2023 (Approximate), Expires: 07/01/2024 [facility] Work Phone: Comment on above: Expected: 07/01/2023 (Approximate), Expi res: 07/01/2024 Start: 07-01-2023 End: 07-01-2024 Hemoglobin A1c/Hemoglobin.total in Blood Hemoglobin A1C Lab Routine Type 2 diabetes mellitus with hyperglycemia, without long-term current use of insulin (CMS/HCC) Expected: 07/01/2023 (Approximate), Expires: 07/01/2024 [facility] Service Area Work Phone: Comment on above: Expected: 07/01/2023 (Approximate), Expi res: 07/01/2024 Start: 07-01-2023 End: 07-01-2024 Lipid 1996 panel - Serum or Plasma Lipid Panel Lab Routine Hypertriglyceridemia Expected: 07/01/2023 (Approximate), Expires: 07/01/2024 [facility] Work Phone: Comment on above: Expected: 07/01/2023 (Approximate), Expi res: 07/01/2024 Start: 07-01-2023 End: 07-01-2023 Patient encounter procedure 07/01/2023 10:30 AM EDT Office Visit [facility] [address] [place] [phone] Amberly Back MD [address] [place] [address] [facility] Start: 06-17-2023 End: 06-17-2024 XR Knee - left 3 Views XR knee left 3 views Imaging Routine Acute pain of left knee H/O fall Expected: 06/17/2023, Expires: 06/17/2024 [facility] Area Work Phone: Comment on above: Expected: 06/17/2023, Expires: Start: 06-17-2023 End: 06-17-2023 Patient encounter procedure 06/17/2023 10:00 AM EDT Office Visit [facility] [address] [place] [phone] Amberly Back MD [address] [place] [address] [facility] Start: 05-27-2023 End: 05-27-2024 Comprehensive metabolic 2000 panel - Serum or Plasma Comprehensive Metabolic Panel Lab Routine Hypertension associated with diabetes (CMS/HCC) Type 2 diabetes mellitus with hyperglycemia, unspecified whether correction insulin use (CMS/HCC) Expected: 05/27/2023 (Approximate), Expires: 05/27/2024 [facility] Work Phone: Comment on above: Expected: 05/27/2023 (Approximate), Expi res: 05/27/2024 Start: 05-27-2023 End: 07-27-2024 DBT Breast - bilateral [facility] Work Phone: Comment on above: Expected: 05/27/2023, Expires: Start: 05-27-2023 End: 05-27-2024 Hemoglobin A1c/Hemoglobin.total in Blood Hemoglobin A1C Lab Routine Type 2 diabetes mellitus with hyperglycemia, unspecified whether correction insulin use (CMS/HCC) Expected: 05/27/2023 (Approximate), Expires: 05/27/2024 [facility] Work Phone: Comment on above: Expected: 05/27/2023 (Approximate), Expi res: 05/27/2024 Start: 05-27-2023 End: 05-27-2024 Lipid 1996 panel - Serum or Plasma Lipid Panel Lab Routine Screening for hyperlipidemia Expected: 05/27/2023 (Approximate), Expires: 05/27/2024 [facility] Work Phone: Comment on above: Expected: 05/27/2023 (Approximate), Expi res: 05/27/2024 Start: 05-07-2023 Influenza vaccination Influenza Vaccine (#1) [facility] Start: 2022 Administration of herpes zoster vaccine Zoster Vaccines (1 of 2) [facility] Start: 2022 Screening for malignant neoplasm of colon Flexible sigmoidoscopy [facility] Start: 2022 Zoster Vaccines (1 of 2) Zoster Vaccines (1 of 2) [facility] Start: 12-23-2021 Screening for malignant neoplasm of breast Mammogram [facility] Start: 2002 Screening for malignant neoplasm of cervix [facility] Start: 1994 DTaP/Tdap/Td Vaccines (1 - Tdap) DTaP/Tdap/Td Vaccines (1 - Tdap) [facility] Start: 1993 Screening for malignant neoplasm of cervix [facility] Start: 1991 Hepatitis B Vaccines (1 of 3 - 19+ 3-dose series) Hepatitis B Vaccines (1 of 3 - 19+ 3-dose series) [facility] Start: 1991 Pneumococcal vaccination Pneumococcal Vaccine (1 of 2 - PCV) [facility] Start: 1991 Urine screening for protein Diabetes: Urine Protein Screening [facility] Start: 1990 Hepatitis C screening Hepatitis C Screening [facility] Start: 1987 HIV screening HIV Screening [facility] Start: 1984 Depression screening using PHQ-9 (Patient Health Questionnaire 9) score Depression Screening/Follow-Up (PHQ-2/9) [facility] Start: 1982 Diabetic foot examination Diabetes: Foot Exam [facility] Start: 1982 Glaucoma screening Diabetes: Retinopathy Screening [facility] Start: 1978 Pneumococcal Vaccine: Pediatrics (0 to 5 Years) and At-Risk Patients (6 to 64 Years) (1 - PCV) Pneumococcal Vaccine: Pediatrics (0 to 5 Years) and At-Risk Patients (6 to 64 Years) (1 - PCV) [facility] Start: 1978 Pneumococcal Vaccine: Pediatrics (0 to 5 Years) and At-Risk Patients (6 to 64 Years) (1 of 2 - PCV) Pneumococcal Vaccine: Pediatrics (0 to 5 Years) and At-Risk Patients (6 to 64 Years) (1 of 2 - PCV) [facility] Start: 1975 History and physical examination, annual for health maintenance Wellness Visit [facility] Start: 1973 MMR Vaccines (1 of 1 - Standard series) MMR Vaccines (1 of 1 - Standard series) [facility] Start: 03-20-1973 COVID-19 Vaccine (#1) COVID-19 Vaccine (#1) [facility] Start: 1972 Hemoglobin A1c measurement Diabetes: Hemoglobin A1C [facility] Start: 1972 Hepatitis B Vaccines (1 of 3 - 3-dose series) Hepatitis B Vaccines (1 of 3 - 3-dose series) [facility] Start: 1972 HIV screening HIV Screening [facility] Start: 1972 Lipid panel Lipid Panel [facility] Start: 1972 Screening for malignant neoplasm of colon [facility] Start: 1972 Tetanus vaccination Tetanus: Every 10yrs [facility] Start: 1972 Urine screening for protein Diabetes: Urine Protein Screening [facility] Start: 1972 Yearly Adult Physical Yearly Adult Physical [facility] Payers Date Payer Category Payer Self-pay 2025 Unknown [id number] 2020 Unknown [id number] 2019 Medicaid (Managed Care) 1.2. [id number] 2019 Medicaid [id number] 2017 Unknown 1972 Unknown [id number] 2.16.840.1.205840.3.579.2. 1972 Unknown [id number] 2.16.840.1.458612.3.579.2. 717 1972 Unknown [id number] 2.16.840.1.854867.3.579.2. 717 1972 Unknown [id number] 2.16.840.1.277728.3.579.2. 717 1972 Unknown [id number] 2.16.840.1.371490.3.579.2. 717 1972 Unknown [id number] 2.16.840.1.129638.3.579.2. 717 1972 Unknown [id number] 2.16.840.1.146973.3.579.2. 717 1972 Unknown [id number] 2.16.840.1.268545.3.579.2. 717 1972 Unknown [id number] 2.16.840.1.338384.3.579.2. 356 1972 Unknown [id number] 2.16.840.1.725011.3.579.2. 1069 1972 Unknown [id number] 2.16.840.1.657982.3.579.2. 903 1972 Unknown [id number] 2.16.840.1.275379.3.579.2. 903 1972 Unknown [id number] 2.16.840.1.644892.3.579.2. 1242 1972 Unknown [id number] 2.16.840.1.278624.3.579.2. 3 1972 Unknown [id number] 2.16.840.1.258441.3.579.2. 1242 1972 Unknown [id number] 2.16.840.1.736432.3.579.2. 1243 1972 Unknown [id number] 2.16.840.1.298882.3.579.2. 4 1972 Unknown [id number] 2.16.840.1.877069.3.579.2. 1244 1972 Unknown [id number] 2.16.840.1.244753.3.579.2. 4 1972 Unknown [id number] 2.16.840.1.718251.3.579.2. 1244 1972 Unknown [id number] 2.16.840.1.156270.3.579.2. 1244 1972 Unknown [id number] 2.16.840.1.267290.3.579.2. 1244 1972 Unknown [id number] 2.16.840.1.420501.3.579.2. 1244 Medicaid MEDICAID [employer] [facility] Subscriber Plan / Payer (Effective for All Dates) Name: Lucy Lorenz Relation to Subscriber: Self Name: Lucy Lorenz Payer ID: Not on file Group ID: Not on file Type: Not on file Address: [place] [id number] Unknown [id number] Social History Date Type Detail Facility Start: 05-27-2023 End: 08-28-2024 Tobacco smoking status NHIS Never smoked tobacco [facility] Work Phone: Start: 05-27-2023 End: 08-28-2024 Tobacco use and exposure Smokeless tobacco non-user [facility] Work Phone: Start: 05-27-2023 End: 12-04-2024 Alcohol intake Ex-drinker (finding) [facility] Work Phone: Start: 05-27-2023 End: 12-04-2024 History of Social function [facility] Work Phone: Start: 05-27-2023 End: 12-04-2024 Tobacco use panel [facility] Work Phone: Start: 1970 Sex Assigned At Not on file [facility] Work Phone: Start: 06-21-2023 End: 12-04-2024 Exposure to SARS-CoV-2 (event) Not sure [facility] NEGATED: Highlighted row - - [facility] Work Phone: Functional Status Date Assessment Result Facility NEGATED: Highlighted row Functional performance Functional status health issues are not documented Disease [facility] Work Phone: Mental Status Date Assessment Result Facility NEGATED: Highlighted row Cognitive function [Interpretation] Cognitive status health issues are not documented Disease [facility] Work Phone: Clinical Notes 05-27-2023 to 12-04-2024 Amberly Back MD - 12/04/2024 8:30 AM DANIELLE Davis - 12/02/2024 1:15 PM Evans Back MD - 11/20/2024 8:15 AM Evans Back MD - 09/28/2024 8:30 AM EST Note Date & Type Note Facility 12-04-2024 History of Present illness Narrative Subjective Patient ID: Lucy Lorenz is a 54 y.o. female who presents for Follow-up (2 week follow up). HPI F/U AFTER URGENT CARE VISIT 2 DAYS AGO. FOR SINUS CONGESTION AND NAUSEA. HAD NEGATIVE COVID, INFLUENZA A+B AND RSV. STILL HAS THE CONGESTION AND NAUSEA . WONDERS IF CAN HAVE ANTIBIOTIC . LASIX HELPED WITH EDEMA , BUT STILL HAS THE R FOOT PAIN 5-6/10 X 2 MONTHS. Review of Systems Constitutional: Negative for chills and fever. HENT: Positive for congestion. Negative for postnasal drip and rhinorrhea. Eyes: Negative. Negative for visual disturbance. Respiratory: Negative for cough, shortness of breath and wheezing. Cardiovascular: Negative. Negative for chest pain, palpitations and leg swelling. Gastrointestinal: Positive for nausea. Negative for abdominal distention, abdominal pain, constipation, diarrhea and vomiting. Endocrine: Negative. Genitourinary: Negative for dysuria and urgency. Musculoskeletal: Positive for arthralgias. Negative for back pain. Skin: Negative. Negative for rash. Allergic/Immunologic: Negative for immunocompromised state. Neurological: Negative. Negative for dizziness, weakness, light-headedness and headaches. Psychiatric/Behavioral: Negative. Negative for agitation. Objective Physical Exam Constitutional: General: She is not in acute distress. HENT: Head: Normocephalic. Nose: Nose normal. Mouth/Throat: Mouth: Mucous membranes are moist. Eyes: Conjunctiva/sclera: Conjunctivae normal. Pupils: Pupils are equal, round, and reactive to light. Cardiovascular: Rate and Rhythm: Normal rate and regular rhythm. Pulses: Normal pulses. Heart sounds: Normal heart sounds. Pulmonary: Effort: No respiratory distress. Breath sounds: No wheezing. Chest: Chest wall: No tenderness. Abdominal: General: Abdomen is flat. Bowel sounds are normal. Palpations: Abdomen is soft. Tenderness: There is no abdominal tenderness. Musculoskeletal: General: Tenderness present. Normal range of motion. Cervical back: Normal range of motion. Lymphadenopathy: Cervical: No cervical adenopathy. Skin: General: Skin is warm and dry. Findings: No rash. Neurological: General: No focal deficit present. Mental Status: She is alert. Mental status is at baseline. Psychiatric: Mood and Affect: Mood normal. Behavior: Behavior normal. Assessment/Plan 1. Acute non-recurrent maxillary sinusitis azithromycin (Zithromax) 250 mg tablet predniSONE (Deltasone) 2.5 mg tablet 2. Nausea ondansetron ODT (Zofran-ODT) 4 mg disintegrating tablet 3. Hypertension associated with diabetes (Multi) Comprehensive Metabolic Panel Comprehensive Metabolic Panel 4. Hypercholesterolemia Lipid Panel Lipid Panel 5. Type 2 diabetes mellitus with hyperglycemia, without long-term current use of insulin Comprehensive Metabolic Panel Hemoglobin A1C Comprehensive Metabolic Panel Hemoglobin A1C 6. Right foot pain Referral to Podiatry PT WAS INSTRUCTED TO INCREASE FLUID INTAKE ,TAKE TYLENOL 650 MG PO Q6H/PRN FOR PAIN OR FEVER AND TAKE ROBITUSSIN OTC 2 TSP Q 6H/PRN FOR COUGH.\\ADVISED TO ELEVATE THE HEAD OF THE BED FOR SLEEP AND TO SLEEP WITH WARM HUMIDIFIER. ADVISED TO APPLY WARM COMPRESSION AND OTC PAIN CREAM PRN FOR PAIN, FALL PRECAUTION. ADVISED TO HAVE LOW FAT AND LOW CALORIE DIET AND TO LOOSE WEIGHT, DAILY EXERCISE. MDM 1) COMPLEXITY: 1 UNDIAGNOSED NEW PROBLEM WITH UNCERTAIN PROGNOSIS 2)DATA: TESTS INTERPRETED AND OR ORDERED, TOOK INDEPENDENT HISTORY OR RECORDS REVIEWED 3)RISK: MODERATE RISK DUE TO NATURE OF MEDICAL CONDITIONS/COMORBIDITY OR MEDICATIONS ORDERED OR SURGICAL OR PROCEDURE REFERRAL, . 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 documented in this encounter [facility] Work Phone: 12-02-2024 History of Present illness Narrative [facility] Brian Downing APRN-ENVIRONMENTAL COMPLIANCE INSPECTOR Visit Note - 12/02/2024 1:57 PM This note was generated with voice recognition software and may contain errors including spelling, grammar, syntax, and misrecognization of what was dictated. Patient: Lucy Lorenz, , 54 y.o., female PCP: Amberly Back MD -- ALLERGIES: Allergies Allergen Reactions Adhesive Tape-Silicones Rash Pt gets blisters when she uses bandaids Gabapentin Dizziness and Nausea/vomiting CURRENT MEDICATIONS: Current Outpatient Medications Medication Instructions albuterol 90 mcg/actuation inhaler 2 puffs, inhalation, Every 6 hours PRN apple cider vinegar 600 mg capsule 1 capsule, Daily ascorbic acid (Vitamin C) 500 mg tablet 1 tablet, Daily BEE POLLEN ORAL 1 tablet, Daily busPIRone (BUSPAR) 5 mg, oral, 3 times daily PRN cyclobenzaprine (FLEXERIL) 10 mg, oral, Nightly PRN DULoxetine (CYMBALTA) 20 mg, oral, 2 times daily ECHINACEA ORAL 1 tablet, Daily furosemide (LASIX) 20 mg, oral, Daily PRN hydrOXYzine HCL (ATARAX) 25 mg, oral, 3 times daily PRN lisinopriL-hydrochlorothiazide 20-12.5 mg tablet 1 tablet, oral, 2 times daily metFORMIN (GLUCOPHAGE) 500 mg, oral, Daily with breakfast metoprolol succinate XL (TOPROL-XL) 25 mg, oral, Daily, Do not crush or chew. omeprazole (PRILOSEC) 40 mg, oral, Daily before breakfast, Do not crush or chew. ondansetron ODT (ZOFRAN-ODT) 4 mg, oral, Every 8 hours PRN simvastatin (ZOCOR) 5 mg, oral, Nightly TURMERIC ORAL Daily -- PAST MEDICAL HX: Patient Active Problem List Diagnosis Abnormal LFTs Chronic low back pain Degeneration of intervertebral disc of thoracic region Hypertension associated with diabetes (Multi) Knee pain, left Leg edema Muscle weakness of lower extremity Panic attacks Primary insomnia Type 2 diabetes mellitus with hyperglycemia (Multi) Anxiety Depression, major, in remission ([facility]) Numbness Hypertriglyceridemia Class 1 obesity due to excess calories with serious comorbidity and body mass index (BMI) of 31.0 to 31.9 in adult Witnessed apneic spells Hypercholesterolemia Obstructive sleep apnea syndrome, mild Chronic fatigue SURGICAL HX: Past Surgical History: Procedure Laterality Date ADENOIDECTOMY OTHER SURGICAL HISTORY 12/05/2019 Removal - TOE NAIL AVULSION TONSILLECTOMY FAMILY HX: No pertinent history. SOCIAL HX: reports that she has never smoked. She has never used smokeless tobacco. 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 -- CHIEF COMPLAINT: Chief Complaint Patient presents with URI Dizziness C/o Dizziness, headache, sinus pressure and nausea x 1 day HISTORY OF PRESENT ILLNESS: The history was obtained from patientSolitario Ayala is a 54 y.o. female, who presents with a chief complaint of sneezing, nasal congestion (green mucus), vertigo with nausea, headaches, sinus pressure/pain, scratchy throat, and fatigue - sxs started on . Denies any fever/chills, body aches, ear pain, abdominal pain, chest pain, wheezing/shortness of breath, rashes, urinary symptoms, vomiting, and diarrhea. Denies any changes in mental status. No swelling in legs. Appetite is decreased ; is able to eat and drink fluids without difficulty; denies loss of sense of taste or smell. Reports symptoms have gotten worse since onset, although vertigo has improved from yesterday to today. Has been taking Excedrin Migraine, ibuprofen, and Zofran with some temporary relief; no other [id number] medications or home remedies for symptom management. No known ill contacts. Has not received the COVID vaccine. Has not received this season's influenza vaccine.. No known history of COVID infection. Is not a smoker. Reports has history of vertigo in the past and current symptoms are the same. Denies any lightheadedness, CP, SOB, palpitations, weakness in extremities, changes in vision, and any other red flags. REVIEW OF SYSTEMS: 10 systems reviewed negative with exception of history of present illness as listed above. TODAY'S VITALS: BP 116/77 Pulse 81 Temp 35.9 C (96.7 F) (Temporal) Resp 16 Ht 1.778 m (5' 10") Wt 94.8 kg (209 lb) SpO2 99% BMI 29.99 kg/m PHYSICAL EXAMINATION: General: Pleasant, well nourished female; alert and oriented; in no acute distress, although appears to be feeling unwell. Sitting comfortably on exam chair. Non-dyspneic. Eyes: Pupils equal, round and reactive to light. No conjunctival erythema; no scleral icterus. HENT: + mild frontal and maxillary sinus tenderness; + audible nasal congestion. Airway patent, TMs both with mild fluid, but otherwise unremarkable; ear canals clear/unremarkable bilaterally. Nasal mucosa mildly injected and edematous. Oral mucosa moist. Posterior pharynx mildly injected but without lesions or oropharyngeal exudate aside from PND. Uvula is midline. Managing oral secretions without difficulty. Neck: Supple. Mildly tender, mobile anterior cervical lymphadenopathy bilat. Trachea is midline. Respiratory: Respirations easy and unlabored, Breath sounds equal. Lungs are clear to auscultation; no wheezes, rhonchi, or rales; has good air movement throughout. No cough noted. Non-dyspneic with ambulation; able to maintain SpO2. Cardiovascular: Normal rate, Regular rhythm. Normal S1S2. No m/r/g. No peripheral edema. Gastrointestinal: Soft, non-tender, non-distended; no palpable masses or organomegaly. Bowel sounds normoactive. Musculoskeletal: Grossly normal; appropriate for age. Integumentary: [place], warm, dry, and intact. No rashes or skin discoloration appreciated. Good skin turgor. Neurologic: Alert and oriented, no gross deficits. CN's 2-12 grossly intact. No meningeal signs. Ambulates independently and without instability. Cognition and Speech: Oriented, Speech clear and coherent. Psychiatric: Cooperative, Appropriate mood & affect. -- Medical Decision Making LABORATORY or RADIOLOGICAL IMAGING ORDERS/RESULTS: COVID/Influenza/RSV PCR tests done - results pending IMPRESSION/PLAN: Course: Worsening; stable 1. Acute viral syndrome (Primary) 2. Nausea 3. Vertigo - POCT SARS-COV-2/FLU/RSV PCR SYMPTOMATIC manually resulted - ondansetron ODT (Zofran-ODT) 4 mg disintegrating tablet; Dissolve 1 tablet (4 mg) in the mouth every 8 hours if needed for nausea or vomiting. Dispense: 12 tablet; Refill: 0 No red flags on exam today, but stressed importance of close monitoring and seeking care immediately if symptoms worsen at any point. Symptoms consistent with acute viral syndrome/viral sinusitis with associated symptoms, but reviewed other potential etiologies, and nasal swab obtained (using proper PPE) for COVID-19/influenza/RSV testing to err on the side of caution. No antibiotics indicated at this point, but will start Zofran for PRN use. Instructed to push fluids, rest, and to use appropriate over the counter medications as needed for management of symptoms. Advised can review test results on the portal and office will contact pt within the next 24-48 hours. Reviewed instructions for self-isolation and continued monitoring. Reviewed red flags to monitor for, counseled on potential adverse reactions of treatments, expectations for improvement in sxs, and advised to follow-up with primary care provider in 2-3 days if symptoms persist, or to seek care sooner if worsening or if any additional concerns/red flags develop. Patient agreed with plan of care; questions were encouraged and answered. DANIELLE Salas Advanced Practice Provider [facility] documented in this encounter [facility] Work Phone: 11-20-2024 History of Present illness Narrative Subjective Patient ID: Lucy Lorenz is a 54 y.o. female who presents for Follow-up (4 month fu/Wants to talk about another med for metformin and Zofran ). HPI INTENTIONAL WEIGHT LOSS. STOPPED THE METFORMIN (COULDN'T TOLERATE THE BID ,BUT DENIED HAVING HYPOGLYCEMIA WITH BID. ABDOMINAL BLOATING WITH NAUSEA ON AND OFF. PRN ZOFRAN IN THE PAST HELPED. WORSENING R FOOT PAIN 6-7/10 WITH EDEMA OF TOES/FOOT. GABAPENTIN GIVEN BY HEAD FILTER PRESS TENDER DIDN'T HELP ( AND PT DIDN'T LIKE THE SIDE EFFECTS). HAD NEGATIVE XR EARLIER. Review of Systems Constitutional: Negative for chills and fever. HENT: Negative. Negative for congestion, postnasal drip and rhinorrhea. Eyes: Negative. Negative for visual disturbance. Respiratory: Negative for cough, shortness of breath and wheezing. Cardiovascular: Negative. Negative for chest pain, palpitations and leg swelling. Gastrointestinal: Negative. Negative for abdominal distention, abdominal pain, constipation, diarrhea, nausea and vomiting. Endocrine: Negative. Genitourinary: Negative for dysuria and urgency. Musculoskeletal: Positive for arthralgias. Negative for back pain. Skin: Negative. Negative for rash. Allergic/Immunologic: Negative for immunocompromised state. Neurological: Negative. Negative for dizziness, weakness, light-headedness and headaches. Psychiatric/Behavioral: Negative. Negative for agitation. Objective Physical Exam Constitutional: General: She is not in acute distress. HENT: Head: Normocephalic. Nose: Nose normal. Mouth/Throat: Mouth: Mucous membranes are moist. Eyes: Conjunctiva/sclera: Conjunctivae normal. Pupils: Pupils are equal, round, and reactive to light. Cardiovascular: Rate and Rhythm: Normal rate and regular rhythm. Pulses: Normal pulses. Heart sounds: Normal heart sounds. Pulmonary: Effort: No respiratory distress. Breath sounds: No wheezing. Chest: Chest wall: No tenderness. Abdominal: General: Abdomen is flat. Bowel sounds are normal. Palpations: Abdomen is soft. Tenderness: There is no abdominal tenderness. Musculoskeletal: General: Tenderness present. Normal range of motion. Cervical back: Normal range of motion. Comments: 2+ R FOOT EDEMA WITH TENDERNESS Lymphadenopathy: Cervical: No cervical adenopathy. Skin: General: Skin is warm and dry. Findings: No rash. Neurological: General: No focal deficit present. Mental Status: She is alert. Mental status is at baseline. Psychiatric: Mood and Affect: Mood normal. Behavior: Behavior normal. Assessment/Plan 1. Right foot pain furosemide (Lasix) 20 mg tablet predniSONE (Deltasone) 10 mg tablet 2. Type 2 diabetes mellitus with hyperglycemia, without long-term current use of insulin metFORMIN (Glucophage) 500 mg tablet 3. Nausea ondansetron (Zofran) 4 mg tablet 4. Gastroesophageal reflux disease without esophagitis omeprazole (PriLOSEC) [address] capsule 5. Edema of right foot furosemide (Lasix) 20 mg tablet predniSONE (Deltasone) 10 mg tablet ALL ASSESSED CHRONIC CONDITIONS ARE STABLE OR ADDRESSED. ADVISED TO APPLY WARM COMPRESSION AND OTC PAIN CREAM PRN FOR PAIN, R LEG ELEVATION PRN. Lose weight. Do not overeat. Eat small portions at meals and snacks. Avoid tight clothing and tight-fitting belts. Do not lie down or bend over within the first 15-30 minutes after eating. Do not chew gum or suck on hard candy. Swallowing air with chewing gum and sucking on hard candy can cause belching and reflux. Raise the head of your bed 6-8 inches. Do not eat/drink: chocolate, tomatoes, tomato sauces, oranges, pineapple, grapefruit, mints, coffee, alcohol, carbonated beverages, and black pepper. Eat a low fat diet. Fatty and greasy foods cause your stomach to produce more acid. WILL START OMEPRAZOLE 40 MG DAILY. HTN addressed as follow: MONITOR BP GOAL BP LOWER THAN 130/80 LOW SALT EXERCISE DAILY, FALL PRECAUTION . MDM 1) COMPLEXITY: 1 UNDIAGNOSED NEW PROBLEM WITH UNCERTAIN PROGNOSIS 2)DATA: TESTS INTERPRETED AND OR ORDERED, TOOK INDEPENDENT HISTORY OR RECORDS REVIEWED 3)RISK: MODERATE RISK DUE TO NATURE OF MEDICAL CONDITIONS/COMORBIDITY OR MEDICATIONS ORDERED OR SURGICAL OR PROCEDURE REFERRAL, . 2 weeks documented in this encounter [facility] Work Phone: 09-28-2024 History of Present illness Narrative Subjective Patient ID: Lucy Lorenz is a 54 y.o. female who presents for Follow-up (Right Foot pain 4 months ). HPI F/U ON R Foot PAIN WHICH IS IMPROVING (2/10 ON AND OFF) , PREDNISONE HELPED .WEARS SANDALS MOST OF THE TIMES . Review of Systems Constitutional: Negative for chills and fever. HENT: Negative. Negative for congestion, postnasal drip and rhinorrhea. Eyes: Negative. Negative for visual disturbance. Respiratory: Negative for cough, shortness of breath and wheezing. Cardiovascular: Negative. Negative for chest pain, palpitations and leg swelling. Gastrointestinal: Negative. Negative for abdominal distention, abdominal pain, constipation, diarrhea, nausea and vomiting. Endocrine: Negative. Genitourinary: Negative for dysuria and urgency. Musculoskeletal: Positive for arthralgias. Negative for back pain. Skin: Negative. Negative for rash. Allergic/Immunologic: Negative for immunocompromised state. Neurological: Negative. Negative for dizziness, weakness, light-headedness and headaches. Psychiatric/Behavioral: Negative. Negative for agitation. Objective Physical Exam Constitutional: General: She is not in acute distress. HENT: Head: Normocephalic. Nose: Nose normal. Mouth/Throat: Mouth: Mucous membranes are moist. Eyes: Conjunctiva/sclera: Conjunctivae normal. Pupils: Pupils are equal, round, and reactive to light. Cardiovascular: Rate and Rhythm: Normal rate and regular rhythm. Pulses: Normal pulses. Heart sounds: Normal heart sounds. Pulmonary: Effort: No respiratory distress. Breath sounds: No wheezing. Chest: Chest wall: No tenderness. Abdominal: General: Abdomen is flat. Bowel sounds are normal. Palpations: Abdomen is soft. Tenderness: There is no abdominal tenderness. Musculoskeletal: General: No tenderness. Normal range of motion. Cervical back: Normal range of motion. Lymphadenopathy: Cervical: No cervical adenopathy. Skin: General: Skin is warm and dry. Findings: No rash. Neurological: General: No focal deficit present. Mental Status: She is alert. Mental status is at baseline. Psychiatric: Mood and Affect: Mood normal. Behavior: Behavior normal. Assessment/Plan 1. Type 2 diabetes mellitus with hyperglycemia, without long-term current use of insulin 2. Hypertension associated with diabetes (Multi) 3. Right foot pain ADVISED TO APPLY WARM COMPRESSION AND OTC PAIN CREAM PRN FOR PAIN. ADVISED TO SEE HER HEAD FILTER PRESS TENDER FOR EVALUATION FOR DIABETIC SHOES AND TO AVOID WEARING SANDALS/ FLIP FLOPS. Diabetes Mellitus addressed as follow: 1800 GAIL ADA HGA1C GOAL LESS THAN 7 LOSE WT EXERCISE DAILY HTN addressed as follow: MONITOR BP GOAL BP LOWER THAN 130/80 LOW SALT EXERCISE DAILY MDM 1) COMPLEXITY: MORE THAN 1 STABLE CHRONIC CONDITION ADDRESSED 2)DATA: TESTS INTERPRETED AND OR ORDERED, TOOK INDEPENDENT HISTORY OR RECORDS REVIEWED 3)RISK: MODERATE RISK DUE TO NATURE OF MEDICAL CONDITIONS/COMORBIDITY OR MEDICATIONS ORDERED OR SURGICAL OR PROCEDURE REFERRAL, . Has F/U documented in this encounter [facility] Work Phone: 09-13-2024 History of Present illness Narrative Subjective Patient ID: Lucy Lorenz is a 53 y.o. female who presents for Foot Pain (C/O RIGHT FOOT PAIN X 3 MONTHS. 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 GUERRA. PRESCRIBED GABAPENTIN BUT PATIENT WAS UNABLE TO TOLERATE MED - CAUSED DIZZINESS AND NAUSEA. ). HPI MED REFILL. R FOOT PAIN X 3 MONTHS WHICH IS GRADUALLY GETTING WORSE.NO H/O TRAUMA. HAD XR DONE BY HEAD FILTER PRESS TENDER , WAS GIVEN GABAPENTIN WHICH SHE COULDN'T TOLERATE. PAIN IS 6/10 ON AND OFF ,GETS WORSE BY THE END OF THE DAY. OTC NSAIDS DIDN'T HELP MUCH. Review of Systems Constitutional: Negative for chills and fever. HENT: Negative. Negative for congestion, postnasal drip and rhinorrhea. Eyes: Negative. Negative for visual disturbance. Respiratory: Negative for cough, shortness of breath and wheezing. Cardiovascular: Negative. Negative for chest pain, palpitations and leg swelling. Gastrointestinal: Negative. Negative for abdominal distention, abdominal pain, constipation, diarrhea, nausea and vomiting. Endocrine: Negative. Genitourinary: Negative for dysuria and urgency. Musculoskeletal: Positive for arthralgias. Negative for back pain. Skin: Negative. Negative for rash. Allergic/Immunologic: Negative for immunocompromised state. Neurological: Negative. Negative for dizziness, weakness, light-headedness and headaches. Psychiatric/Behavioral: Negative. Negative for agitation. Objective Physical Exam Constitutional: General: She is not in acute distress. HENT: Head: Normocephalic. Nose: Nose normal. Mouth/Throat: Mouth: Mucous membranes are moist. Eyes: Conjunctiva/sclera: Conjunctivae normal. Pupils: Pupils are equal, round, and reactive to light. Cardiovascular: Rate and Rhythm: Normal rate and regular rhythm. Pulses: Normal pulses. Heart sounds: Normal heart sounds. Pulmonary: Effort: No respiratory distress. Breath sounds: No wheezing. Chest: Chest wall: No tenderness. Abdominal: General: Abdomen is flat. Bowel sounds are normal. Palpations: Abdomen is soft. Tenderness: There is no abdominal tenderness. Musculoskeletal: General: Tenderness present. Normal range of motion. Cervical back: Normal range of motion. Comments: R FOOT TENDERNESS INVOLVING PLANTAR SURFACE WITH EDEMA AND TENDERNESS CLOSE TO 1ST AND 2ND R MTPs . NO ERYTHEMA ,HAS MILD WARMTH. Lymphadenopathy: Cervical: No cervical adenopathy. Skin: General: Skin is warm and dry. Findings: No rash. Neurological: General: No focal deficit present. Mental Status: She is alert. Mental status is at baseline. Psychiatric: Mood and Affect: Mood normal. Behavior: Behavior normal. Assessment/Plan 1. Inflammation of foot joint predniSONE (Deltasone) 10 mg tablet cephalexin (Keflex) 500 mg capsule 2. Panic attacks hydrOXYzine HCL (Atarax) 25 mg tablet 3. Pruritus hydrOXYzine HCL (Atarax) 25 mg tablet 4. Tendinitis of foot predniSONE (Deltasone) 10 mg tablet cyclobenzaprine (Flexeril) 10 mg tablet 5. Hypertension associated with diabetes (Multi) TEST RESULTS WERE DISCUSSED. EXPLAINED THE DX OF TENDINITIS /FASCITIS. ADVISED TO APPLY WARM COMPRESSION AND OTC PAIN CREAM PRN FOR PAIN. ADVISED TO FINISH THE KEFLEX FOR INFLAMMATION. ADVISED TO AVOID DOING STATIONARY BIKE UNTIL THE PAIN IMPROVES . ADVISED TO CUT DOWN CAFFEINE. HTN addressed as follow: MONITOR BP GOAL BP LOWER THAN 130/80 LOW SALT EXERCISE DAILY MDM 1) COMPLEXITY: 1 UNDIAGNOSED NEW PROBLEM WITH UNCERTAIN PROGNOSIS 2)DATA: TESTS INTERPRETED AND OR ORDERED, TOOK INDEPENDENT HISTORY OR RECORDS REVIEWED 3)RISK: MODERATE RISK DUE TO NATURE OF MEDICAL CONDITIONS/COMORBIDITY OR MEDICATIONS ORDERED OR SURGICAL OR PROCEDURE REFERRAL, . 2 weeks documented in this encounter [facility] Work Phone: 08-29-2024 Note NEW Patient Visit Gertrude Guerra DPM Patient Name: Lucy Lorenz. . Date of : 1970, 53 y.o.. Gender: female. Subjective: Patient is a pleasant 53-year-old female who presents to clinic complaining of right foot pain that has been ongoing for 3 months. Patient states that she has burning in the ball of the foot and then it radiates to the right great toe and lateral aspect of the foot. She denies any trauma or injury. Patient states that her foot is significantly painful to walk on. Admits to history of severe low back injury but was not addressed due to insurance/liability. No other pedal complaint at this time. Denies fevers, chills, nausea, vomiting, chest pain, shortness of breath, or any other constitutional symptoms. Past Medical History: Diagnosis Date Abnormal LFTs Anxiety Chronic fatigue Chronic low back pain Class 1 obesity due to excess calories with serious comorbidity and body mass index (BMI) of 31.0 to 31.9 in adult Degeneration of intervertebral disc of thoracic region Depression Hypercholesterolemia Hypertension associated with diabetes (HCC) Hypertriglyceridemia Knee pain, left Leg edema Muscle weakness of lower extremity Numbness Obstructive sleep apnea syndrome, mild Panic attacks Primary insomnia TMJ (dislocation of temporomandibular joint) Type 2 diabetes mellitus with hyperglycemia (HCC) Witnessed apneic spells Past Surgical History: Procedure Laterality Date TOE NAIL AVULSION N/A 12/05/2019 ADENOIDECTOMY N/A TONSILLECTOMY N/A Social History Socioeconomic History Marital status: Tobacco Use Smoking status: Never Smokeless tobacco: Never Substance and Sexual Activity Alcohol use: Not Currently Physical Examination: BP 132/85 (BP Location: Right arm, Patient Position: Sitting, BP Cuff Size: Adult) Pulse 79 Temp 97.2 degrees F (36.2 degrees C) (Infrared) General Appearance: Alert, cooperative, no distress, appears stated age. Podiatric Exam Vascular: DP and PT pulses are palpable 2/4. Capillary refill time is less than 3 secs to distal digits. Skin temperature is warm to warm from proximal tibial tuberosity to distal digit. No appreciable edema to bilateral foot or ankle Neurological: Gross sensation is intact. Protective sensation is diminished to the plantar aspect of the right foot using the [place] Apolinar monofilament Dermatologic: No open wounds or ulcerations. Interdigital spaces are clean dry and intact. Musculoskeletal: Patient is able to wiggle digits ankle joint range of motion is intact. Muscle strength is 5/5 to dorsiflexors, plantar flexors, inverters and everters. Compartments soft and compressible. No calf pain Diagnoses: 1. Idiopathic neuropathy 2. History of low back pain Imaging: Right foot 3 views weightbearing radiographs were ordered on 08/28/2024 and I personally interpreted them as follows: No acute fractures or dislocations noted. Joint spaces are within normal limits. Large plantar calcaneal enthesophyte noted. Assessment/Plan: Patient was seen and evaluated. Discussed all clinical findings. I ordered, interpreted, and discussed right foot radiographic findings with patient as noted above. Patient has neuropathic pain to the plantar and lateral aspect of the right foot. Patient has never tried any neuropathic medication such as gabapentin and therefore I recommended a trial of gabapentin 100 mg 3 times a day. This was prescribed and sent to her pharmacy. Discussed with patient risk and benefits of this medication. Patient is to follow-up in 3-4 weeks for reevaluation. All questions were answered to patient satisfaction. Patient understands to call with any questions or concerns. This note was partially created using voice recognition software and is inherently subject to errors including those of syntax and sound-alike substitutions which may escape proofreading. In such instances, original meaning may be extrapolated by contextual derivation. Gertrude Guerra DPM, MS Podiatric Physician & Surgeon AUTHENTICATED BY GERTRUDE GUERRA, [place] 08/29/2024 07:42:55 [facility] 08-28-2024 History of Present illness Narrative Abstracted from documented in this encounter [facility] 08-14-2024 History of Present illness Narrative 53 y.o. female patient presents for evaluation of sinus pressure. Patient reports 1 week of progressively worsening maxillary sinus pain, nasal congestion, cough, fatigue and headache. There is reported mild postnasal drip and ear pressure. No fever, chills, body aches, n/v/d, or other constitutional signs and symptoms. Symptoms have been refractory to [id number] medications. Vitals: 08/14/24 1338 BP: 120/80 Pulse: 95 Resp: 16 Temp: 36.7 C (98 F) SpO2: 95% No Known Allergies Medication Documentation Review Audit Reviewed by Rivka Kaiser MA (Pc Analyst) on 08/14/24 at 1336 Medication Order Taking? Sig Documenting Provider Last Dose Status apple cider vinegar 600 mg capsule [id number] Yes Take 1 capsule by mouth once daily. Historical Provider, Taking Active ascorbic acid (Vitamin C) 500 mg tablet [id number] Yes Take 1 tablet (500 mg) by mouth once daily. Historical Provider, Taking Active BEE POLLEN ORAL [id number] Yes Take 1 tablet by mouth once daily. Historical Provider, Taking Active busPIRone (Buspar) 5 mg tablet [id number] Yes TAKE 1 TABLET (5 MG) BY MOUTH 3 TIMES A DAY NEEDED (ANXIETY). Amberly Back MD Active cyclobenzaprine (Flexeril) 10 mg tablet [id number] Yes Take 1 tablet (10 mg) by mouth once daily as needed for muscle spasms. Historical Provider, Taking Active DULoxetine (Cymbalta) [address] capsule [id number] Yes Take 1 capsule (20 mg) by mouth 2 times a day. Amberly Back MD Active ECHINACEA ORAL [id number] Yes Take 1 tablet by mouth once daily. Breanna Provider, Taking Active gemfibrozil (Lopid) 600 mg tablet [id number] Yes Take 1 tablet (600 mg) by mouth 2 times a day. Amberly Back MD Active hydrOXYzine HCL (Atarax) 25 mg tablet [id number] No Take 1 tablet (25 mg) by mouth 3 times a day as needed for itching. Amberly Back MD Taking 06/26/23 3386 lisinopriL-hydrochlorothiazide 20-12.5 mg tablet [id number] Yes TAKE 1 TABLET BY MOUTH TWICE A DAY Amberly Back MD Active metFORMIN (Glucophage) 500 mg tablet [id number] Yes Take 1 tablet (500 mg) by mouth 2 times daily (morning and late afternoon). Amberly Back MD Active metoprolol succinate XL (Toprol-XL) 25 mg 24 hr tablet [id number] Yes Take 1 tablet (25 mg) by mouth once daily. Do not crush or chew. Amberly Back MD Taking Active simvastatin (Zocor) 5 mg tablet [id number] Yes Take 1 tablet (5 mg) by mouth once daily at bedtime. Amberly Back MD Active TURMERIC ORAL [id number] Yes Take by mouth early in the morning.. Historical Provider, Taking Active Past Medical History: Diagnosis Date Breast cancer screening by mammogram 06/01/2023 CAT 1 Encounter for gynecological examination (general) (routine) without abnormal findings Encounter for cervical Pap smear with pelvic exam Immunization not carried out because of patient refusal 07/11/2020 Influenza vaccination declined Past Surgical History: Procedure Laterality Date ADENOIDECTOMY OTHER SURGICAL HISTORY 12/05/2019 Removal - TOE NAIL AVULSION TONSILLECTOMY ROS See HPI Physical Exam Vitals and nursing note reviewed. Constitutional: Appearance: She is ill-appearing (mildly). HENT: Head: Normocephalic and atraumatic. Right Ear: Tympanic membrane and ear canal normal. Left Ear: Tympanic membrane and ear canal normal. Nose: Congestion present. Right Sinus: Maxillary sinus tenderness present. Left Sinus: Maxillary sinus tenderness present. Mouth/Throat: Mouth: Mucous membranes are moist. Pharynx: Oropharynx is clear. Eyes: Extraocular Movements: Extraocular movements intact. Conjunctiva/sclera: Conjunctivae normal. Pupils: Pupils are equal, round, and reactive to light. Cardiovascular: Rate and Rhythm: Normal rate. Pulmonary: Effort: Pulmonary effort is normal. Breath sounds: Rhonchi (clears with cough) present. Lymphadenopathy: Cervical: No cervical adenopathy. Skin: General: Skin is warm and dry. Neurological: General: No focal deficit present. Mental Status: She is alert and oriented to person, place, and time. Psychiatric: Mood and Affect: Mood normal. Behavior: Behavior normal. Assessment/Plan/MDM Lucy was seen today for uri. Diagnoses and all orders for this visit: Acute non-recurrent maxillary sinusitis (Primary) - amoxicillin-pot clavulanate (Augmentin) 875-125 mg tablet; Take 1 tablet by mouth 2 times a day for 7 days. - albuterol 90 mcg/actuation inhaler; Inhale 2 puffs every 6 hours if needed for wheezing. Encouraged pt to use otc cold remedies PRN, push PO fluids and rest. Patient's clinical presentation is otherwise unremarkable at this time. Patient is discharged with instructions to follow-up with primary care or seek emergency medical attention for worsening symptoms or any new concerns. I did personally review Lucy's past medical history, surgical history, social history, as well as family history (when relevant). In this case, I also oversaw the her drug management by reviewing her medication list, allergy list, as well as the medications that I prescribed during the UC course and/or recommended as an out-patient (including possible OTC medications such as acetaminophen, NSAIDs , etc). After reviewing the items above, I did look at previous medical documentation, such as recent hospitalizations, office visits, and/or recent consultations with PCP/specialist. SDOH: Another factor that I considered in Lucy's care was her Social Determinants of Health (SDOH). During this UC encounter, she did not have social determinants of health. Those SDOH influencing Lucy's care are: none Patrick Hirsch CNP [facility] [phone] documented in this encounter [facility] Work Phone: 07-20-2024 History of Present illness Narrative Subjective Patient ID: Lucy Lorenz is a 53 y.o. female who presents for Follow-up (6 WK F/U WITH SLEEP STUDY). HPI F/U ON SLEEP STUDY. HAD INTENTIONAL WEIGHT LOSS BY DIET AND EXERCISE . FATIGUE IS STILL PRESENT ,BUT LESS SEVERE COMPARED TO PAST. Review of Systems Constitutional: Positive for fatigue. Negative for chills and fever. HENT: Negative. Negative for congestion, postnasal drip and rhinorrhea. Eyes: Negative. Negative for visual disturbance. Respiratory: Negative for cough, shortness of breath and wheezing. Cardiovascular: Negative. Negative for chest pain, palpitations and leg swelling. Gastrointestinal: Negative. Negative for abdominal distention, abdominal pain, constipation, diarrhea, nausea and vomiting. Endocrine: Negative. Genitourinary: Negative for dysuria and urgency. Musculoskeletal: Negative. Negative for back pain. Skin: Negative. Negative for rash. Allergic/Immunologic: Negative for immunocompromised state. Neurological: Negative. Negative for dizziness, weakness, light-headedness and headaches. Psychiatric/Behavioral: Negative. Negative for agitation. Objective Physical Exam Constitutional: General: She is not in acute distress. HENT: Head: Normocephalic. Nose: Nose normal. Mouth/Throat: Mouth: Mucous membranes are moist. Eyes: Conjunctiva/sclera: Conjunctivae normal. Pupils: Pupils are equal, round, and reactive to light. Cardiovascular: Rate and Rhythm: Normal rate and regular rhythm. Pulses: Normal pulses. Heart sounds: Normal heart sounds. Pulmonary: Effort: No respiratory distress. Breath sounds: No wheezing. Chest: Chest wall: No tenderness. Abdominal: General: Abdomen is flat. Bowel sounds are normal. Palpations: Abdomen is soft. Tenderness: There is no abdominal tenderness. Musculoskeletal: General: No tenderness. Normal range of motion. Cervical back: Normal range of motion. Lymphadenopathy: Cervical: No cervical adenopathy. Skin: General: Skin is warm and dry. Findings: No rash. Neurological: General: No focal deficit present. Mental Status: She is alert. Mental status is at baseline. Psychiatric: Mood and Affect: Mood normal. Behavior: Behavior normal. Assessment/Plan 1. Obstructive sleep apnea syndrome, mild 2. Type 2 diabetes mellitus with hyperglycemia, without long-term current use of insulin Comprehensive Metabolic Panel Hemoglobin A1C Albumin-Creatinine Ratio, Urine Random 3. Abnormal LFTs Comprehensive Metabolic Panel 4. Hypertriglyceridemia Lipid Panel 5. Hypercholesterolemia Lipid Panel 6. Hypertension associated with diabetes (Multi) Comprehensive Metabolic Panel 7. Chronic fatigue TEST RESULTS WERE DISCUSSED. OFFERED TO START THE CPAP TX, PT REFUSED AND WANTS TO WAIT , HAS PLAN TO HAVE MORE WEIGHT LOSS. ADVISED TO AVOID SLEEPING ON SUPINE POSITION WHICH CAN MAKE THE APNEA WORSE. ADVISED TO HAVE LOW FAT AND LOW CALORIE DIET AND TO LOOSE WEIGHT, DAILY EXERCISE. Diabetes Mellitus addressed as follow: 1800 GAIL ADA HGA1C GOAL LESS THAN 7 LOSE WT EXERCISE DAILY HTN addressed as follow: MONITOR BP GOAL BP LOWER THAN 130/80 LOW SALT MDM 1) COMPLEXITY: MORE THAN 1 STABLE CHRONIC CONDITION ADDRESSED 2)DATA: TESTS INTERPRETED AND OR ORDERED, TOOK INDEPENDENT HISTORY OR RECORDS REVIEWED 3)RISK: MODERATE RISK DUE TO NATURE OF MEDICAL CONDITIONS/COMORBIDITY OR MEDICATIONS ORDERED OR SURGICAL OR PROCEDURE REFERRAL, . 4 mon LABS TO [facility]. documented in this encounter [facility] Work Phone: 05-25-2024 History of Present illness Narrative Subjective Patient ID: Lucy Lorenz is a 53 y.o. female who presents for Follow-up (2 WK F/U WITH LABS). HPI LAB F/U, MED REFILL. DOESN'T CHECK THE BLOOD SUGAR ROUTINELY.TOLERATES THE TX WELL. DEPRESSION/ ANXIETY ARE IMPROVING . Review of Systems Constitutional: Negative for chills and fever. HENT: Negative. Negative for congestion, postnasal drip and rhinorrhea. Eyes: Negative. Negative for visual disturbance. Respiratory: Negative for cough, shortness of breath and wheezing. Cardiovascular: Negative. Negative for chest pain, palpitations and leg swelling. Gastrointestinal: Negative. Negative for abdominal distention, abdominal pain, constipation, diarrhea, nausea and vomiting. Endocrine: Negative. Genitourinary: Negative for dysuria and urgency. Musculoskeletal: Negative. Negative for back pain. Skin: Negative. Negative for rash. Allergic/Immunologic: Negative for immunocompromised state. Neurological: Negative. Negative for dizziness, weakness, light-headedness and headaches. Psychiatric/Behavioral: Negative. Negative for agitation. Objective Physical Exam Constitutional: General: She is not in acute distress. HENT: Head: Normocephalic. Nose: Nose normal. Mouth/Throat: Mouth: Mucous membranes are moist. Eyes: Conjunctiva/sclera: Conjunctivae normal. Pupils: Pupils are equal, round, and reactive to light. Cardiovascular: Rate and Rhythm: Normal rate and regular rhythm. Pulses: Normal pulses. Heart sounds: Normal heart sounds. Pulmonary: Effort: No respiratory distress. Breath sounds: No wheezing. Chest: Chest wall: No tenderness. Abdominal: General: Abdomen is flat. Bowel sounds are normal. Palpations: Abdomen is soft. Tenderness: There is no abdominal tenderness. Musculoskeletal: General: No tenderness. Normal range of motion. Cervical back: Normal range of motion. Lymphadenopathy: Cervical: No cervical adenopathy. Skin: General: Skin is warm and dry. Findings: No rash. Neurological: General: No focal deficit present. Mental Status: She is alert. Mental status is at baseline. Psychiatric: Mood and Affect: Mood normal. Behavior: Behavior normal. Assessment/Plan 1. Type 2 diabetes mellitus with hyperglycemia, without long-term current use of insulin (Multi) metFORMIN (Glucophage) 500 mg tablet 2. Depression, major, in remission ([facility]) DULoxetine (Cymbalta) [address] capsule 3. Anxiety DULoxetine (Cymbalta) [address] capsule 4. Hypercholesterolemia simvastatin (Zocor) 5 mg tablet 5. Hypertriglyceridemia fenofibrate (Tricor) 54 mg tablet 6. Encounter for screening mammogram for malignant neoplasm of breast BI mammo bilateral screening tomosynthesis 7. Hypertension associated with diabetes (Multi) 8. Abnormal LFTs TEST RESULTS WERE DISCUSSED. ADVISED TO HAVE LOW FAT AND LOW CALORIE DIET AND TO LOOSE WEIGHT, DAILY EXERCISE. Diabetes Mellitus addressed as follow: 1800 GAIL ADA. ADVISED TO CHECK THE BS DAILY AND TO BRING THE LOG . HGA1C GOAL LESS THAN 7 LOSE WT EXERCISE DAILY. WILL INCREASE THE METFORMIN TO 500 MG BID. HTN addressed as follow: MONITOR BP GOAL BP LOWER THAN 130/80 LOW SALT EXERCISE DAILY ADVISED FOR RELAXATION TECHNIQUES AND TO CUT DOWN ON CAFFEINE. MDM 1) COMPLEXITY: 1 UNDIAGNOSED NEW PROBLEM WITH UNCERTAIN PROGNOSIS 2)DATA: TESTS INTERPRETED AND OR ORDERED, TOOK INDEPENDENT HISTORY OR RECORDS REVIEWED 3)RISK: MODERATE RISK DUE TO NATURE OF MEDICAL CONDITIONS/COMORBIDITY OR MEDICATIONS ORDERED OR SURGICAL OR PROCEDURE REFERRAL, . 6 weeks documented in this encounter [facility] Work Phone: 05-09-2024 History of Present illness Narrative Subjective Patient ID: Lucy Lorenz is a 53 y.o. female who presents for Follow-up (FOLLOW UP VISIT- PT STATES HER BF STATES SHE STOPS BREATHING IN HER SLEEP STATES SHE MAY HAVE SLEEP APENA. PT STATES SHE WOULD LIKE TO SEE A ENT. PT IS INTERESTED IN "ZEPBOUND" STATES SLEEPING A LOT DUE TO HER DEPRESSION MEDS ). HPI WORSENING DEPRESSION, ANXIETY, PANIC ATTACKS AND GRIED (LOST SISTER IN LAW FROM ALS) . EXTREME FATIGUE , WITNESSED EPISODES OF APNEA WITH SNORING . HAD INTENTIONAL WEIGHT LOSS. WONDERS IF CAN TRY THE INJECTIONS FOR WEIGHT LOSS. Review of Systems Constitutional: Positive for fatigue. Negative for chills and fever. HENT: Negative. Negative for congestion, postnasal drip and rhinorrhea. Eyes: Negative. Negative for visual disturbance. Respiratory: Positive for apnea. Negative for cough, shortness of breath and wheezing. SNORING Cardiovascular: Negative. Negative for chest pain, palpitations and leg swelling. Gastrointestinal: Negative. Negative for abdominal distention, abdominal pain, constipation, diarrhea, nausea and vomiting. Endocrine: Negative. Genitourinary: Negative for dysuria and urgency. Musculoskeletal: Negative. Negative for back pain. Skin: Negative. Negative for rash. Allergic/Immunologic: Negative for immunocompromised state. Neurological: Negative. Negative for dizziness, weakness, light-headedness and headaches. Psychiatric/Behavioral: Positive for dysphoric mood. Negative for agitation. The patient is nervous/anxious. Objective Physical Exam Constitutional: General: She is not in acute distress. HENT: Head: Normocephalic. Nose: Nose normal. Mouth/Throat: Mouth: Mucous membranes are moist. Eyes: Conjunctiva/sclera: Conjunctivae normal. Pupils: Pupils are equal, round, and reactive to light. Cardiovascular: Rate and Rhythm: Normal rate and regular rhythm. Pulses: Normal pulses. Heart sounds: Normal heart sounds. Pulmonary: Effort: No respiratory distress. Breath sounds: No wheezing. Chest: Chest wall: No tenderness. Abdominal: General: Abdomen is flat. Bowel sounds are normal. Palpations: Abdomen is soft. Tenderness: There is no abdominal tenderness. Musculoskeletal: General: No tenderness. Normal range of motion. Cervical back: Normal range of motion. Lymphadenopathy: Cervical: No cervical adenopathy. Skin: General: Skin is warm and dry. Findings: No rash. Neurological: General: No focal deficit present. Mental Status: She is alert. Mental status is at baseline. Psychiatric: Mood and Affect: Mood normal. Behavior: Behavior normal. Assessment/Plan 1. Witnessed apneic spells In-Center Sleep Study 2. Depression, major, in remission ([facility]) In-Center Sleep Study Referral to Psychiatry DULoxetine (Cymbalta) [address] capsule 3. Fatigue, unspecified type In-Center Sleep Study Comprehensive Metabolic Panel CBC and Auto Differential TSH with reflex to Free T4 if abnormal Magnesium Zinc 4. Class 1 obesity due to excess calories with serious comorbidity and body mass index (BMI) of 31.0 to 31.9 in adult In-Center Sleep Study 5. Hypertension associated with diabetes (Multi) Comprehensive Metabolic Panel metoprolol succinate XL (Toprol-XL) 25 mg 24 hr tablet 6. Type 2 diabetes mellitus with hyperglycemia, without long-term current use of insulin (Multi) Hemoglobin A1C Comprehensive Metabolic Panel Albumin-Creatinine Ratio, Urine Random 7. Hypertriglyceridemia Lipid Panel 8. Anxiety Referral to Psychiatry DULoxetine (Cymbalta) [address] capsule 9. Grief Referral to Psychiatry 10. Panic attacks Referral to Psychiatry 11. Snoring ADVISED TO HAVE LOW FAT AND LOW CALORIE DIET AND TO LOOSE WEIGHT, DAILY EXERCISE. Diabetes Mellitus addressed as follow: [address] GAIL ADA HGA1C GOAL LESS THAN 7 LOSE WT EXERCISE DAILY HTN addressed as follow: MONITOR BP GOAL BP LOWER THAN 130/80 LOW SALT EXERCISE DAILY. WILL START METOPROLOL 25 MG DAILY. ADVISED FOR RELAXATION TECHNIQUES AND TO CUT DOWN ON CAFFEINE. WILL INCREASE THE CYMBALTA TO 20 MG BID. MDM 1) COMPLEXITY: 1 UNDIAGNOSED NEW PROBLEM WITH UNCERTAIN PROGNOSIS 2)DATA: TESTS INTERPRETED AND OR ORDERED, TOOK INDEPENDENT HISTORY OR RECORDS REVIEWED 3)RISK: MODERATE RISK DUE TO NATURE OF MEDICAL CONDITIONS/COMORBIDITY OR MEDICATIONS ORDERED OR SURGICAL OR PROCEDURE REFERRAL, . 2 weeks Labs to be done at [facility] documented in this encounter [facility] Work Phone: 07-01-2023 History of Present illness Narrative Subjective Patient ID: Lucy Lorenz is a 52 y.o. female who presents for Follow-up (2 WEEK FOLLOW UP XRAY ). HPI F/U ON BS LOG WHICH IS IMPROVING .F/U ON L KNEE XR . ORAL PREDNISONE HELPED SOME , BUT STILL HAS THE PAIN ON AND OFF 4/10 WITH NORMAL RANGE OF MOTION. Review of Systems Constitutional: Negative for chills and fever. HENT: Negative. Negative for congestion, postnasal drip and rhinorrhea. Eyes: Negative. Negative for visual disturbance. Respiratory: Negative for cough, shortness of breath and wheezing. Cardiovascular: Negative. Negative for chest pain, palpitations and leg swelling. Gastrointestinal: Negative. Negative for abdominal distention, abdominal pain, constipation, diarrhea, nausea and vomiting. Endocrine: Negative. Genitourinary: Negative for dysuria and urgency. Musculoskeletal: Positive for arthralgias. Negative for back pain. Skin: Negative. Negative for rash. Allergic/Immunologic: Negative for immunocompromised state. Neurological: Negative. Negative for dizziness, weakness, light-headedness and headaches. Psychiatric/Behavioral: Negative. Negative for agitation. Objective Physical Exam Constitutional: General: She is not in acute distress. HENT: Head: Normocephalic. Nose: Nose normal. Mouth/Throat: Mouth: Mucous membranes are moist. Eyes: Conjunctiva/sclera: Conjunctivae normal. Pupils: Pupils are equal, round, and reactive to light. Cardiovascular: Rate and Rhythm: Normal rate and regular rhythm. Pulses: Normal pulses. Heart sounds: Normal heart sounds. Pulmonary: Effort: No respiratory distress. Breath sounds: No wheezing. Chest: Chest wall: No tenderness. Abdominal: General: Abdomen is flat. Bowel sounds are normal. Palpations: Abdomen is soft. Tenderness: There is no abdominal tenderness. Musculoskeletal: General: Tenderness present. Normal range of motion. Cervical back: Normal range of motion. Comments: MILD LATERAL L KNEE TENDERNESS , NORMAL RANGE OF MOTION. Lymphadenopathy: Cervical: No cervical adenopathy. Skin: General: Skin is warm and dry. Findings: No rash. Neurological: General: No focal deficit present. Mental Status: She is alert. Mental status is at baseline. Psychiatric: Mood and Affect: Mood normal. Behavior: Behavior normal. Assessment/Plan 1. Hypertension associated with diabetes ([facility]) Comprehensive Metabolic Panel 2. Type 2 diabetes mellitus with hyperglycemia, without long-term current use of insulin ([facility]) Hemoglobin A1C Comprehensive Metabolic Panel 3. Hypertriglyceridemia Lipid Panel 4. Screen for colon cancer Cologuard colon cancer screening Cologuard colon cancer screening 5. Acute pain of left knee ADVISED TO APPLY WARM COMPRESSION AND OTC PAIN CREAM PRN FOR PAIN AND TO WRAP THE L KNEE. ADVISED FOR FALL PRECAUTION. ADVISED TO HAVE LOW FAT AND LOW CALORIE DIET AND TO LOOSE WEIGHT, DAILY EXERCISE. 1800 GAIL ADA HGA1C GOAL LESS THAN 7 LOSE WT EXERCISE DAILY MONITOR BP GOAL BP LOWER THAN 130/80 LOW SALT EXERCISE DAILY MDM 1) COMPLEXITY: 1 UNDIAGNOSED NEW PROBLEM WITH UNCERTAIN PROGNOSIS 2)DATA: TESTS INTERPRETED AND OR ORDERED, TOOK INDEPENDENT HISTORY OR RECORDS REVIEWED 3)RISK: MODERATE RISK DUE TO NATURE OF MEDICAL CONDITIONS/COMORBIDITY OR MEDICATIONS ORDERED OR SURGICAL OR PROCEDURE REFERRAL, . . 4 mon LAB S TO [facility] documented in this encounter [facility] Work Phone: 06-17-2023 Evaluation + Plan note Associated Problem(s): Hypertension associated with diabetes (CMS/HCC) Doing fine and stable with current management, continue same [facility] Work Phone: 06-17-2023 Miscellaneous Notes Associated Problem(s): Hypertension associated with diabetes (CMS/HCC) Doing fine and stable with current management, continue same documented in this encounter [facility] Work Phone: 06-17-2023 History of Present illness Narrative Subjective Patient ID: Lucy Lorenz is a 52 y.o. female who presents for Follow-up (3 WK F/U WITH MAMMO. C/O 2 FALLS SINCE LAST VISIT). HPI LAB AND MAMMO F/U. L KNEE PAIN 4-01/13. S/P FALL SEVERAL DAYS AGO (TRIPPED ON THE FLOOR)., 4 DAYS AGO WITH TRAUMA TO L KNEE. HAD INTENTIONAL WEIGHT LOSS.B/L PINKISH EYES W/O PAIN,X 1 DAY SLEPT WITH CONTACT LENSES LAST NIGHT Review of Systems Constitutional: Negative for chills and fever. HENT: Negative. Negative for congestion, postnasal drip and rhinorrhea. Eyes: Positive for redness. Negative for visual disturbance. Respiratory: Negative for cough, shortness of breath and wheezing. Cardiovascular: Negative. Negative for chest pain, palpitations and leg swelling. Gastrointestinal: Negative. Negative for abdominal distention, abdominal pain, constipation, diarrhea, nausea and vomiting. Endocrine: Negative. Genitourinary: Negative for dysuria and urgency. Musculoskeletal: Positive for arthralgias. Negative for back pain. Skin: Negative. Negative for rash. Allergic/Immunologic: Negative for immunocompromised state. Neurological: Negative. Negative for dizziness, weakness, light-headedness and headaches. Psychiatric/Behavioral: Negative. Negative for agitation. Objective Physical Exam Constitutional: General: She is not in acute distress. HENT: Head: Normocephalic. Nose: Nose normal. Mouth/Throat: Mouth: Mucous membranes are moist. Eyes: Pupils: Pupils are equal, round, and reactive to light. Comments: B/L CONJUNCTIVITIS Cardiovascular: Rate and Rhythm: Normal rate and regular rhythm. Pulses: Normal pulses. Heart sounds: Normal heart sounds. Pulmonary: Effort: No respiratory distress. Breath sounds: No wheezing. Chest: Chest wall: No tenderness. Abdominal: General: Abdomen is flat. Bowel sounds are normal. Palpations: Abdomen is soft. Tenderness: There is no abdominal tenderness. Musculoskeletal: General: Tenderness present. Normal range of motion. Cervical back: Normal range of motion. Comments: L KNEE TENDERNESS WITH MILDLY DECREASED RANGE OF MOTION Lymphadenopathy: Cervical: No cervical adenopathy. Skin: General: Skin is warm and dry. Findings: No rash. Neurological: General: No focal deficit present. Mental Status: She is alert. Mental status is at baseline. Psychiatric: Mood and Affect: Mood normal. Behavior: Behavior normal. Assessment/Plan 1. Type 2 diabetes mellitus with hyperglycemia, without long-term current use of insulin ([facility]) metFORMIN (Glucophage) 500 mg tablet 2. Acute pain of left knee predniSONE (Deltasone) 5 mg tablet XR knee left 3 views 3. H/O fall XR knee left 3 views 4. Hypertension associated with diabetes ([facility]) 5. Acute conjunctivitis of both eyes, unspecified acute conjunctivitis type ciprofloxacin (Ciloxan) 0.3 % ophthalmic solution ADVISED TO APPLY WARM COMPRESSION AND OTC PAIN CREAM PRN FOR PAIN. ADVISED FOR L LEG ELEVATION PRN AND FOR FALL PRECAUTION. ADVISED TO HAVE LOW FAT AND LOW CALORIE DIET AND TO LOOSE WEIGHT, DAILY EXERCISE. 1800 GAIL ADA HGA1C GOAL LESS THAN 7 LOSE WT EXERCISE DAILY ADVISED TO AVOID WEARING CONTACTS UNTIL CONJUNCTIVITIS IMPROVES AND TO AVOID RUBBING THE EYES. MDM 1) COMPLEXITY: 1 UNDIAGNOSED NEW PROBLEM WITH UNCERTAIN PROGNOSIS 2)DATA: TESTS INTERPRETED AND OR ORDERED, TOOK INDEPENDENT HISTORY OR RECORDS REVIEWED 3)RISK: MODERATE RISK DUE TO NATURE OF MEDICAL CONDITIONS/COMORBIDITY OR MEDICATIONS ORDERED OR SURGICAL OR PROCEDURE REFERRAL, . 2 weeks. Handout for diabetic diet. documented in this encounter [facility] Work Phone: 05-27-2023 History of Present illness Narrative Subjective Patient ID: Lucy Lorenz is a 52 y.o. female who presents for Follow-up (C/O CYST ON BACK AND GROIN DID GET THE BACK LANCED BUT NOT THE GROIN. AT REPLACED BY [facility] HAD AN BAD EXPERIENCE NOW IS GOING TO [facility]. C/O OF ITCHINESS BEHIND EARS/INNER EARS AND UNDER BELLY AREA. HX OF ECZEMA YOUNGER TRIED LUBRIDERM BUT DIDN'T HELP. C/O NUMBNESS STARTING FROM HIP AREA TO HER TOES. C/O L ANKLE ACHILLES PAIN C/O CAN'T CONTROL HER BOWELS OR URINATION. WANTS TO SEE IF SHE CAN TALK ABOUT WEIGHT LOSS. ). HPI F/U ON DM2 AND HTN. LAST VISIT WAS 2 YEARS AGO. RAN OUT OF METFORMIN SEVERAL MONTHS AGO. ITCHY SKIN BEHIND THE EARS AND ON ABDOMEN .HAD SKIN CYST OF UPPER BACK THAT WAS DRAINED RECENTLY . NUMBNESS OF BOTH LEGS . DOESN'T CHECK THE BLOOD SUGAR. DEPRESSION/ ANXIETY ,HAS BEEN OUT OF CYMBALTA. Review of Systems Constitutional: Negative for chills and fever. HENT: Negative. Negative for congestion, postnasal drip and rhinorrhea. Eyes: Negative. Negative for visual disturbance. Respiratory: Negative for cough, shortness of breath and wheezing. Cardiovascular: Negative. Negative for chest pain, palpitations and leg swelling. Gastrointestinal: Negative. Negative for abdominal distention, abdominal pain, constipation, diarrhea, nausea and vomiting. Endocrine: Negative. Genitourinary: Negative for dysuria and urgency. Musculoskeletal: Negative. Negative for back pain. Skin: Negative for rash. PRURITUS Allergic/Immunologic: Negative for immunocompromised state. Neurological: Positive for numbness. Negative for dizziness, weakness, light-headedness and headaches. Psychiatric/Behavioral: Negative. Negative for agitation. Objective Physical Exam Constitutional: General: She is not in acute distress. HENT: Head: Normocephalic. Nose: Nose normal. Mouth/Throat: Mouth: Mucous membranes are moist. Eyes: Conjunctiva/sclera: Conjunctivae normal. Pupils: Pupils are equal, round, and reactive to light. Cardiovascular: Rate and Rhythm: Normal rate and regular rhythm. Pulses: Normal pulses. Heart sounds: Normal heart sounds. Pulmonary: Effort: No respiratory distress. Breath sounds: No wheezing. Chest: Chest wall: No tenderness. Abdominal: General: Abdomen is flat. Bowel sounds are normal. Palpations: Abdomen is soft. Tenderness: There is no abdominal tenderness. Musculoskeletal: General: No tenderness. Normal range of motion. Cervical back: Normal range of motion. Lymphadenopathy: Cervical: No cervical adenopathy. Skin: General: Skin is warm and dry. Findings: Rash present. Comments: SKIN CANDIDIASIS OF LOWER ABDOMEN WITH SCRATCH HERRERA. NO LUMP/ NO CYST OF SKIN OF UPPER BACK (THE SCAR OF PREVIOUS CYST IS VISIBLE ,W/O TENDERNESS). Neurological: General: No focal deficit present. Mental Status: She is alert. Mental status is at baseline. Psychiatric: Mood and Affect: Mood normal. Behavior: Behavior normal. Assessment/Plan 1. Screening for hyperlipidemia Lipid Panel 2. Panic attacks busPIRone (Buspar) 5 mg tablet hydrOXYzine HCL (Atarax) 25 mg tablet 3. Hypertension associated with diabetes ([facility]) lisinopriL-hydrochlorothiazide 20-12.5 mg tablet Comprehensive Metabolic Panel 4. Type 2 diabetes mellitus with hyperglycemia, unspecified whether correction insulin use ([facility]) Comprehensive Metabolic Panel Hemoglobin A1C 5. Depression with anxiety DULoxetine (Cymbalta) [address] capsule 6. Encounter for screening mammogram for malignant neoplasm of breast BI mammo bilateral screening tomosynthesis BI mammo bilateral screening tomosynthesis 7. Skin candidiasis clotrimazole-betamethasone (Lotrisone) cream fluconazole (Diflucan) 150 mg tablet 8. Pruritus clotrimazole-betamethasone (Lotrisone) cream fluconazole (Diflucan) 150 mg tablet hydrOXYzine HCL (Atarax) 25 mg tablet 9. Skin inflammation cephalexin (Keflex) 500 mg capsule ADVISED TO APPLY COLD COMPRESSION TO SKIN PRN FOR ITCHING AND TO AVOID SCRATCHING THE SKIN. Advised to keep the skin dry, prevention of sweating andto use otc diaper rash cream prn. 1800 GAIL ADA HGA1C GOAL LESS THAN 7 LOSE WT EXERCISE DAILY MONITOR BP GOAL BP LOWER THAN 130/80 LOW SALT EXERCISE DAILY MDM 1) COMPLEXITY: 1 UNDIAGNOSED NEW PROBLEM WITH UNCERTAIN PROGNOSIS 2)DATA: TESTS INTERPRETED AND OR ORDERED, TOOK INDEPENDENT HISTORY OR RECORDS REVIEWED 3)RISK: MODERATE RISK DUE TO NATURE OF MEDICAL CONDITIONS/COMORBIDITY OR MEDICATIONS ORDERED OR SURGICAL OR PROCEDURE REFERRAL, . MDM 1) COMPLEXITY: 1 UNDIAGNOSED NEW PROBLEM WITH UNCERTAIN PROGNOSIS 2)DATA: TESTS INTERPRETED AND OR ORDERED, TOOK INDEPENDENT HISTORY OR RECORDS REVIEWED 3)RISK: MODERATE RISK DUE TO NATURE OF MEDICAL CONDITIONS/COMORBIDITY OR MEDICATIONS ORDERED OR SURGICAL OR PROCEDURE REFERRAL, . 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 (CMS/HCC) Depression with anxiety Dysthymic disorder Encounter for screening mammogram for malignant neoplasm of breast Skin candidiasis Candidiasis of skin and nails Pruritus Unspecified pruritic disorder Skin inflammation Unspecified local infection of skin and subcutaneous tissue Depression, major, in remission (CMS/HCC) Anxiety Anxiety state, unspecified Numbness Disturbance of skin sensation documented in this encounter [facility] Work Phone: Evaluation note* Diagnosis Type 2 diabetes mellitus with hyperglycemia, without long-term current use of insulin (CMS/HCC)- Primary Acute pain of left knee H/O fall Hypertension associated with diabetes (CMS/HCC) Unspecified essential hypertension Acute conjunctivitis of both eyes, unspecified acute conjunctivitis type Hypertriglyceridemia Pure hyperglyceridemia documented in this encounter [facility] Work Phone: Evaluation note* Diagnosis Hypertension associated with diabetes (CMS/HCC)- Primary Unspecified essential hypertension Type 2 diabetes mellitus with hyperglycemia, without long-term current use of insulin (CMS/HCC) Hypertriglyceridemia Pure hyperglyceridemia Screen for colon cancer Special screening for malignant neoplasms, colon Acute pain of left knee documented in this encounter [facility] Work Phone: Evaluation note* Diagnosis Acute pain of left knee H/O fall documented in this encounter [facility] Work Phone: Evaluation note* Diagnosis Type 2 diabetes mellitus with hyperglycemia, without long-term current use of insulin- Primary Acute pain of left knee H/O fall Hypertension associated with diabetes (Multi) Unspecified essential hypertension Acute conjunctivitis of both eyes, unspecified acute conjunctivitis type Hypertriglyceridemia Pure hyperglyceridemia Obstructive sleep apnea syndrome, mild- Primary Type 2 diabetes mellitus with hyperglycemia, without long-term current use of insulin Abnormal LFTs Hypertriglyceridemia Pure hyperglyceridemia Hypercholesterolemia Pure hypercholesterolemia Hypertension associated with diabetes (Multi) Unspecified essential hypertension Chronic fatigue Other malaise and fatigue documented in this encounter [facility] Work Phone: Evaluation note* Diagnosis Type 2 diabetes mellitus with hyperglycemia, without long-term current use of insulin- Primary Acute pain of left knee H/O fall Hypertension associated with diabetes (Multi) Unspecified essential hypertension Acute conjunctivitis of both eyes, unspecified acute conjunctivitis type Hypertriglyceridemia Pure hyperglyceridemia Acute non-recurrent maxillary sinusitis- Primary documented in this encounter [facility] Work Phone: Evaluation note* Diagnosis Type 2 diabetes mellitus with hyperglycemia, without long-term current use of insulin (Multi)- Primary Acute pain of left knee H/O fall Hypertension associated with diabetes (Multi) Unspecified essential hypertension Acute conjunctivitis of both eyes, unspecified acute conjunctivitis type Hypertriglyceridemia Pure hyperglyceridemia Witnessed apneic spells- Primary Depression, major, in remission ([facility]) Fatigue, unspecified type Class 1 obesity due to excess calories with serious comorbidity and body mass index (BMI) of 31.0 to 31.9 in adult Hypertension associated with diabetes (Multi) Unspecified essential hypertension Type 2 diabetes mellitus with hyperglycemia, without long-term current use of insulin (Multi) Hypertriglyceridemia Pure hyperglyceridemia Anxiety Anxiety state, unspecified Grief Adjustment disorder with depressed mood Panic attacks Panic disorder without agoraphobia Snoring Other dyspnea and respiratory abnormality documented in this encounter [facility] Work Phone: Evaluation note* Diagnosis Type 2 diabetes mellitus with hyperglycemia, without long-term current use of insulin (Multi)- Primary Acute pain of left knee H/O fall Hypertension associated with diabetes (Multi) Unspecified essential hypertension Acute conjunctivitis of both eyes, unspecified acute conjunctivitis type Hypertriglyceridemia Pure hyperglyceridemia Type 2 diabetes mellitus with hyperglycemia, without long-term current use of insulin (Multi)- Primary Depression, major, in remission ([facility]) Anxiety Anxiety state, unspecified Hypercholesterolemia Pure hypercholesterolemia Hypertriglyceridemia Pure hyperglyceridemia Encounter for screening mammogram for malignant neoplasm of breast Hypertension associated with diabetes (Multi) Unspecified essential hypertension Abnormal LFTs documented in this encounter [facility] Work Phone: Evaluation note* Diagnosis Type 2 diabetes mellitus with hyperglycemia, without long-term current use of insulin (Multi)- Primary Acute pain of left knee H/O fall Hypertension associated with diabetes (Multi) Unspecified essential hypertension Acute conjunctivitis of both eyes, unspecified acute conjunctivitis type Hypertriglyceridemia Pure hyperglyceridemia Encounter for screening mammogram for malignant neoplasm of breast documented in this encounter [facility] Work Phone: Evaluation note* Diagnosis Type 2 diabetes mellitus with hyperglycemia, without long-term current use of insulin- Primary Acute pain of left knee H/O fall Hypertension associated with diabetes (Multi) Unspecified essential hypertension Acute conjunctivitis of both eyes, unspecified acute conjunctivitis type Hypertriglyceridemia Pure hyperglyceridemia Inflammation of foot joint- Primary Panic attacks Panic disorder without agoraphobia Pruritus Unspecified pruritic disorder Tendinitis of foot Tenosynovitis of foot and ankle Hypertension associated with diabetes (Multi) Unspecified essential hypertension documented in this encounter [facility] Work Phone: Evaluation note* Diagnosis Type 2 diabetes mellitus with hyperglycemia, without long-term current use of insulin- Primary Acute pain of left knee H/O fall Hypertension associated with diabetes (Multi) Unspecified essential hypertension Acute conjunctivitis of both eyes, unspecified acute conjunctivitis type Hypertriglyceridemia Pure hyperglyceridemia Type 2 diabetes mellitus with hyperglycemia, without long-term current use of insulin- Primary Hypertension associated with diabetes (Multi) Unspecified essential hypertension Right foot pain Pain in soft tissues of limb documented in this encounter [facility] Work Phone: Evaluation note* Diagnosis Type 2 diabetes mellitus with hyperglycemia, without long-term current use of insulin- Primary Acute pain of left knee H/O fall Hypertension associated with diabetes (Multi) Unspecified essential hypertension Acute conjunctivitis of both eyes, unspecified acute conjunctivitis type Hypertriglyceridemia Pure hyperglyceridemia Right foot pain- Primary Pain in soft tissues of limb Type 2 diabetes mellitus with hyperglycemia, without long-term current use of insulin Nausea Nausea alone Gastroesophageal reflux disease without esophagitis Esophageal reflux Edema of right foot documented in this encounter [facility] Work Phone: Evaluation note* Diagnosis Type 2 diabetes mellitus with hyperglycemia, without long-term current use of insulin- Primary Acute pain of left knee H/O fall Hypertension associated with diabetes Unspecified essential hypertension Acute conjunctivitis of both eyes, unspecified acute conjunctivitis type Hypertriglyceridemia Pure hyperglyceridemia Acute viral syndrome- Primary Nausea Nausea alone Vertigo Dizziness and giddiness documented in this encounter [facility] Work Phone: Evaluation note* Diagnosis Type 2 diabetes mellitus with hyperglycemia, without long-term current use of insulin- Primary Acute pain of left knee H/O fall Hypertension associated with diabetes Unspecified essential hypertension Acute conjunctivitis of both eyes, unspecified acute conjunctivitis type Hypertriglyceridemia Pure hyperglyceridemia Acute non-recurrent maxillary sinusitis- Primary Nausea Nausea alone Hypertension associated with diabetes Unspecified essential hypertension Hypercholesterolemia Pure hypercholesterolemia Type 2 diabetes mellitus with hyperglycemia, without long-term current use of insulin Right foot pain Pain in soft tissues of limb documented in this encounter [facility] Work Phone: Instructions* Name Dates Details Instructions not documented [facility] Work Phone: Reason for referral (narrative)* Consultation (Routine) - Authorized Specialty Diagnoses / Procedures Referred By Adriane medeiros Referred To Contact Psychology Diagnoses Depression, major, in remission ([facility]) Anxiety Grief Panic attacks Amberly Back MD [address] [place] [address] Referral ID Status Reason Start Date Expiration Date Visits Requested Visits Authorized [id number] Authorized Specialty Services Required 05/09/2024 05/09/2025 1 1 * Sleep - Outpatient (Routine) - Pending Review Specialty Diagnoses / Procedures Referred By Adriane medeiros Referred To Contact Sleep Lab Diagnoses Witnessed apneic spells Depression, major, in remission (CMS-HCC) Fatigue, unspecified type Class 1 obesity due to excess calories with serious comorbidity and body mass index (BMI) of 31.0 to 31.9 in adult Procedures In-Center Sleep Study Amberly Back MD [address] [place] [address] Referral ID Status Reason Start Date Expiration Date V isits Requested Visits Authorized [id number] Pending Review 05/09/2024 05/09/2025 1 1 [facility] Work Phone: Summary Purpose Family History No Family History Records Found Grandmother Name Dates Details Family history of malignant neoplasm of female breast(V16.3, Z80.3) Status:Active great grandmother Name Dates Details Family history of malignant neoplasm of female breast(V16.3, Z80.3) Status:Active Mother Name Dates Details Family history of type 2 genet betes mellitus(V18.0, Z83.3) Status:Active Family history of hypertensi on(V17.49, Z82.49) Status:Active Family history of malignant neoplasm of female breast(V16.3, Z80.3) Status:Active Father Name Dates Details Family history of type 2 genet betes mellitus(V18.0, Z83.3) Status:Active Family history of hypertensi on(V17.49, Z82.49) Status:Active Advance Directives No Advanced Directives Records FoundNo Advanced Directives Records FoundNo Advanced Directives Records FoundNo Advanced Directives Records FoundNo Advanced Directives Records FoundNo Advanced Directives Records FoundNo Advanced Directives Records FoundNo Advanced Directives Records Found Reason for Referral Specialty Diagnoses / Procedures Referred By Contac t Referred To Contact Radiology Diagnoses Encounter for screening mammogram for malignant neoplasm of breast Procedures BI mammo bilateral screening tomosynthesis Amberly Back MD [address] [place] [address] Referral ID Status Reason Start Date Expiration Date Visits Requested Visits Authorized [id number] Authorized Perform Procedure 05/27/2023 11/23/2023 1 1 Specialty Diagnoses / Procedures Referred By Contac t Referred To Contact Radiology Diagnoses Acute pain of left knee H/O fall Procedures XR knee left 3 views Amberly Back MD [address] [place] [address] Referral ID Status Reason Start Date Expiration Date Visits Requested Visits Authorized [id number] Authorized Perform Procedure 12/14/2023 1 1 Referral ID Status Reason Start Date Expiration Date Visits Requested Visits Authorized [id number] Authorized Perform Procedure 05/25/2024 05/25/2025 1 1 Specialty Diagnoses / Procedures Referred By Contac t Referred To Contact Diagnoses Hypertriglyceridemia Amberly Back MD [address] [place] [address] Referral ID Status Reason Start Date Expiration Date V isits Requested Visits Authorized [id number] Pending Review 05/25/2024 05/25/2025 1 1 Additional Source Comments INFORMATION SOURCE (unrecogn ized section and content) DATE CREATED AUTHOR 09/06/2018 [facility] DATE CREATED AUTHOR AUTHOR'S ORGANIZ ATION 11/17/2018 [facility] DATE CREATED AUTHOR AUTHOR'S ORGANIZ ATION 01/04/2021 [employer] DATE CREATED AUTHOR AUTHOR'S ORGANIZ ATION 06/09/2023 [facility] DATE CREATED AUTHOR AUTHOR'S ORGANIZ ATION 09/02/2024 [facility] DATE CREATED AUTHOR AUTHOR'S ORGANIZ ATION 12/05/2024 [facility] DATE CREATED AUTHOR AUTHOR'S ORGANIZ ATION 12/06/2024 [facility] DATE CREATED AUTHOR AUTHOR'S ORGANIZ ATION 06/08/2025 [facility] Reason for Visit (unrecogniz ed section and content) Reason Comments Follow-up C/O CYST ON BACK AND GROIN DID GET THE BACK LANCED BUT NOT THE GROIN. AT REPLACED BY [facility] WILLIAM HAD AN BAD EXPERIENCE NOW IS GOING TO [facility]. C/O OF ITCHINESS BEHIND EARS/INNER EARS AND UNDER BELLY AREA. HX OF ECZEMA YOUNGER TRIED LUBRIDERM BUT DIDN'T HELP. C/O NUMBNESS STARTING FROM HIP AREA TO HER TOES. C/O L ANKLE ACHILLES PAIN C/O CAN'T CONTROL HER BOWELS OR URINATION. WANTS TO SEE IF SHE CAN TALK ABOUT WEIGHT LOSS. Reason Comments Follow-up 3 WK F/U WITH MAMMO. C/O 2 FALLS SINCE LAST VISIT Reason Comments Follow-up 2 WEEK FOLLOW UP XRA Y Specialty Diagnoses / Procedures Referred By Adriane medeiros Referred To Contact Radiology Diagnoses Acute pain of left knee H/O fall Procedures XR knee left 3 views Amberly Back MD [address] [place] [address] Referral ID Status Reason Start Date Expiration Date Visits Requested Visits Authorized [id number] Authorized Perform Procedure 3 12/14/2023 1 1 Reason Comments Follow-up 6 WK F/U WITH SLEEP STUDY Reason Comments URI Sinus pressure, runn y nose, bi-lat eye irritation, headache, loss of voice, bi-lat ear pain, sore throat, cough, congestion x 6 days Reason Comments Follow-up FOLLOW UP VISIT- PT STATES HER BF STATES SHE STOPS BREATHING IN HER SLEEP STATES SHE MAY HAVE SLEEP APENA. PT STATES SHE WOULD LIKE TO SEE A ENT. PT IS INTERESTED IN "ZEPBOUND" STATES SLEEPING A LOT DUE TO HER DEPRESSION MEDS Reason Comments Follow-up 2 WK F/U WITH LABS Specialty Diagnoses / Procedures Referred By Adriane medeiros Referred To Contact Radiology Diagnoses Encounter for screening mammogram for malignant neoplasm of breast Procedures BI mammo bilateral screening tomosynthesis Amberly Back MD [address] [place] [address] Referral ID Status Reason Start Date Expiration Date Visits Requested Visits Authorized [id number] Authorized Perform Procedure 05/25/2024 05/25/2025 1 1 Reason Comments Foot Pain C/O RIGHT FOOT PAIN X 3 MONTHS. 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 GUERRA. PRESCRIBED GABAPENTIN BUT PATIENT WAS UNABLE TO TOLERATE MED - CAUSED DIZZINESS AND NAUSEA. Reason Comments Follow-up Right Foot pain 4 mo nths Reason Comments Follow-up 4 month fuWants to t alk about another med for metformin and Zofran Reason Comments URI Dizziness C/o Dizziness, heada kylah, sinus pressure and nausea x 1 day Reason Comments Follow-up 2 week follow up Care Teams (unrecognized sec tion and content) Application Architect Manager Relationship Specialty Start Date End Date Amberly Back MD [address] [place] [address] PCP - General 11/13/19 Amberly Back MD [address] [place] [address] PCP - [facility] PCP 09/06/21 Nayan Escobar MD [address] [facility] [place] [address] PCP - [employer] A[employer] PCP 09/06/21 Application Architect Manager Relationship Specialty Start Date End Date Amberly Back MD [address] [place] [address] PCP - General 11/13/19 Amberly Back MD [address] [place] [address] PCP - [facility] PCP 09/06/21 Nayan Escobar MD [address] [facility] [address] [place] [address] PCP - C[employer]ennifer ACO PCP 09/06/21 Application Architect Manager Relationship Specialty Start Date End Date Amberly Back MD [address] [place] [address] PCP - General 11/13/19 Amberly Back MD [address] [place] [address] PCP - [facility] PCP 09/06/21 Nayan Escobar MD [address] [facility] [address] [place] [address] PCP - [employer] [facility] PCP 09/06/21 Application Architect Manager Relationship Specialty Start Date End Date Amberly Back MD [address] [place] [address] PCP - General 11/13/19 Amberly Back MD [address] [place] [address] PCP - [facility] PCP 09/06/21 Nayan Escobar MD [address] [facility] [address] [place] [address] [facility] 09/06/21 Application Architect Manager Relationship Specialty Start Date End Date Amberly Back MD [address] [place] [address] PCP - General 11/13/19 Amberly Back MD [address] [place] [address] PCP - Caresojennifer O PCP 07/07/23 Application Architect Manager Relationship Specialty Start Date End Date Amberly Back MD [address] [place] [address] PCP - General 11/13/19 Amberly Back MD [address] [place] [address] PCP - [employer] ACO PCP 07/07/23 Application Architect Manager Relationship Specialty Start Date End Date Amberly Back MD [address] [place] [address] PCP - General 11/13/19 Amberly Back MD [address] [place] [address] PCP - [employer] A[employer] PCP 07/07/23 Application Architect Manager Relationship Specialty Start Date End Date Amberly Back MD [address] [place] [address] PCP - General 11/13/19 Amberly Back MD [address] [place] [address] PCP - [employer] A[employer] PCP 07/07/23 Application Architect Manager Relationship Specialty Start Date End Date Amberly Back MD [address] [place] [address] PCP - General 11/13/19 Amberly Back MD [address] [place] [address] PCP - [employer] ACO PCP 07/07/23 Application Architect Manager Relationship Specialty Start Date End Date Amberly Back MD [address] [place] [address] PCP - General Internal Medicine 08/17/24 Application Architect Manager Relationship Specialty Start Date End Date Amberly Back MD [address] [place] [address] PCP - General 11/13/19 Amberly Back MD [address] [place] [address] PCP - [employer] ACO PCP 07/07/23 Application Architect Manager Relationship Specialty Start Date End Date Amberly Back MD [address] [place] [address] PCP - General 11/13/19 Amberly Back MD [address] [place] [address] PCP - [employer] [facility] PCP 07/07/23 Application Architect Manager Relationship Specialty Start Date End Date Amberly Back MD [address] [place] [address] PCP - General 11/13/19 Amberly Back MD [address] [place] [address] PCP - [employer] ACO PCP 07/07/23 Application Architect Manager Relationship Specialty Start Date End Date Amberly Back MD [address] [place] [address] PCP - General 11/13/19 Amberly Back MD [address] [place] [address] PCP - [employer] ACO PCP 07/07/23 FOR RECORDS PERTAINING TO PATIENTS WHO ARE OR HAVE BEEN ENROLLED IN A CHEMICAL DEPENDENCY/SUBSTANCEABUSE PROGRAM, SOME INFORMATION MAY BE OMITTED. This clinical summary was aggregated from multiple sources. Caution should be exercised in using it in the provision of clinical care. This summary normalizes information from multiple sources, and as a consequence, information in this document may materially change the coding, format and clinical context of patient data. In addition, data may be omitted in some cases. CLINICAL DECISIONS SHOULD BE BASED ON THE PRIMARY CLINICAL RECORDS. [facility]. provides no warranty or guarantee of the accuracy or completeness of information in this document.
--- NOTE | 2025-07-18 15:24 | NEURO ---
NCS and/or EMG Patient Report Ordering Doctor: Carlos Holcomb DATE OF SERVICE: 07/18/25 Lucy presents with complaints of pain in the feet, primarily on the right side. Electrodiagnostic findings: Peroneal motor nerve demonstrates normal distal latency, amplitude and conduction velocity bilaterally. Tibial motor response within normal limits bilaterally. Sensory responses are within normal limits. Borderline prolonged right tibial F–wave. Prolonged right tibial H–reflex. Needle EMG testing was performed in the lower limbs. All muscles tested showed no evidence of denervation with normal motor unit action potentials. Electrodiagnostic impression: This a normal electrodiagnostic study of the lower limbs. There is no electrodiagnostic evidence for lumbosacral radiculopathy or peripheral polyneuropathy. Multi Select Codes Neurology Neurology Interp Codes: 32116-14 Musc test done w/n test comp (interp) (2) and 20360-52 Nrv cndj test 9-10 studies (interp)
== END | disposition home or self-care (01) ==
LOC: PSN 06:43
PROVIDERS: PCP Internal Medicine; Referring Provider Student in an Organized Health Care Education/Training Program; Visit Provider Student in an Organized Health Care Education/Training Program
DX: M54.16 Radiculopathy, lumbar region (principal); G60.8 Other hereditary and idiopathic neuropathies; M79.661 Pain in right lower leg
CPT/HCPCS: 95886; 95911